=== PATIENT | female | born 1945 | race Caucasian/White ===

== ENCOUNTER → 2022-03-16 14:32 | Outpatient (BNVA) | payer OTHER, SELFPAY | PROVIDERS: Family Provider Nurse Practitioner Family; PCP Nurse Practitioner Family; Referring Provider Student in an Organized Health Care Education/Training Program; Visit Provider Specialist | DX: M25.561 Pain in right knee (principal); M25.562 Pain in left knee; M17.0 Bilateral primary osteoarthritis of knee | CPT/HCPCS: 73560; 73565 ==

== ENCOUNTER → 2022-06-17 10:30 | Outpatient (BNVA) | payer OTHER, SELFPAY | PROVIDERS: Family Provider Nurse Practitioner Family; PCP Student in an Organized Health Care Education/Training Program; Visit Provider Internal Medicine Critical Care Medicine | DX: R06.02 Shortness of breath (principal); J84.10 Pulmonary fibrosis, unspecified; M85.88 Other specified disorders of bone density and structure, other site | CPT/HCPCS: 71046 ==

== ENCOUNTER → 2022-08-19 15:46 | Outpatient (BNVA) | payer MEDICARE, SELFPAY | PROVIDERS: Family Provider Nurse Practitioner Family; PCP Student in an Organized Health Care Education/Training Program; Visit Provider Specialist | DX: M17.0 Bilateral primary osteoarthritis of knee (principal) | CPT/HCPCS: 73560; 73565; 99213; 99214 ==

== ENCOUNTER 2022-11-17 15:17 | Outpatient (CLI) | payer MEDICARE, SELFPAY ==
--- NOTE | 2022-11-17 15:00 | CT_ITS ---
WS: [id number] CT RIGHT knee, noncontrast HISTORY: knee pain TECHNIQUE: Protocol for [facility] total knee replacement has been obtained. This includes axial imaging th rough the RIGHT hip, RIGHT knee and RIGHT ankle. DLP: 963.82 mGy.cm COMPARISON: Knee radiograph 08/19/2022 Minimal narrowing of the RIGHT hip joint. No destructive bone lesion. Severe medial compartment joint space narrowing with bone upon bone RIGHT knee. Osteophytes and subch ondral cysts. Mild lateral compartment and patellofemoral compartment osteoarthritis. Small joint eff usion. Negative ankle. CT/CT knee RT [facility] IMPRESSION: CT imaging provided for [facility] robotic total knee replacement.
== END 2022-11-17 15:18 | disposition home or self-care (01) ==
LOC: RAD 15:17
PROVIDERS: PCP Student in an Organized Health Care Education/Training Program; Visit Provider Specialist
DX: M25.561 Pain in right knee (principal); Z01.818 Encounter for other preprocedural examination
CPT/HCPCS: 73700

== ENCOUNTER → 2022-11-25 15:49 | Outpatient (BNVA) | payer MEDICARE, SELFPAY | PROVIDERS: PCP Student in an Organized Health Care Education/Training Program; Visit Provider Specialist | DX: M17.11 Unilateral primary osteoarthritis, right knee (principal) | CPT/HCPCS: 99214 ==

== ENCOUNTER 2022-12-02 11:55 | Outpatient (CLI) | payer MEDICARE, SELFPAY | END 2022-12-02 11:56 | disposition home or self-care (01) | LOC: RT 12-07 11:57 | PROVIDERS: PCP Student in an Organized Health Care Education/Training Program; Visit Provider Specialist | DX: Z13.6 Encounter for screening for cardiovascular disorders (principal); R00.1 Bradycardia, unspecified | CPT/HCPCS: 93005 ==

== ENCOUNTER 2022-12-08 14:54 | Observation (INO) | payer MEDICARE, SELFPAY ==
[2022-12-02 08:39] VITALS: BMI 34.9
--- NOTE | 2022-12-02 09:13 | ECG_ITS ---
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 [id number]
[2022-12-02 09:39] LABS: Basophils % 0.7 %; Eosinophils # 0.2 10^3/uL (0.0-0.8); Eosinophils % 3.8 %; Hematocrit 39.4 % (37.0-47.0); Hemoglobin 12.7 g/dL (11.5-15.3); Lymphocytes # 2.2 10^3/uL (0.8-4.8); Lymphocytes % 35.7 %; Mean Corpuscular HGB Conc 32.2 g/dL (30.0-36.0); Mean Corpuscular Hemoglobin 32.6 pg (28.0-34.0); Mean Platelet Volume 9.8 fL (7.4-10.4); Monocytes # 0.6 10^3/uL (0.2-0.9); Monocytes % 9.3 %; Neutrophils # 3.03 10^3/uL (1.8-7.7); Neutrophils % 50.2 %; Nucleated Red Blood Cells % 0 %; Platelet Count 232 10^3/cmm (130-400); Red Cell Distribution Width 12.1 % (12.1-15.1)
[2022-12-02 09:54] LABS: Add Urine Microscopic? NO; Charge for UA Resulting for Rev
[2022-12-02 09:57] LABS: Alanine Aminotransferase 16 U/L (0-33); Albumin Level 4.3 g/dL (3.5-5.2); Alkaline Phosphatase 109 U/L (35-105); Anion Gap 12.6 (5-19); Aspartate Amino Transferase 20 U/L (0-32); Blood Urea Nitrogen 13 mg/dL (8-23); Carbon Dioxide 28 mmol/L (22-29); Chloride 104 mmol/L (98-107); Globulin 2.5 g/dL (1.3-4.6); Glucose 96 mg/dL (65-115); Osmolality Calculated 290 mOsm/kg (285-295); Potassium 4.6 mmol/L (3.5-5.1); Sodium 140 mmol/L (136-145); Total Bilirubin 0.2 mg/dL (0.15-1.2); Total Protein 6.8 g/dL (6.6-8.7)
[2022-12-02 10:05] LABS: Bilirubin Urine Neg (Negative); Blood Urine Neg (Negative); Glucose Urine UA Norm (Normal); Ketones Urine Negative (Negative); Leukocyte Esterase Urine Negative (Negative); Nitrate Urine Negative (Negative); Protein Urine Neg (Negative); Urine Appearance Clear (CLEAR); Urine Color Yellow (Yellow); Urobilinogen Urine Norm (Negative); pH Urine 6 (5-7)
--- NOTE | 2022-12-02 10:12 | P.ANESASSM_ITS ---
Pre-Anesthetic Assessment Height/Weight: Height 1.55 m Weight 83.915 kg Preop Diagnosis: Primary osteoarthritis right knee Operation Date: 12/08/22 10:30 Proposed Procedures p Paolo Robot Total Knee Arthroplasty RIGHT 88728/M17.10(Right) - Gifty Tidwell MD Familial anesthetic complications: none Was Beta Arian taken within 24 hours: Yes Was Clonidine taken within 24 hours: N/A Social No alcohol and No tobacco Exam alert, oriented x 3, clear to auscultation bilaterally and regular rate & rhythm (debbi) Airway Submandibular: within normal limits Cervical ROM: within normal limits Mallampati: Class II Dentition: full CV/HEM 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) and Hypertension GI Gastroesophageal Reflux Disease Metabolic Hyperlipidemia and Morbid Obesity [facility] Osteoarthritis/DJD Anesthetic Plan ASA status: 3 Anesthesia: Regional (specify below) (SAB with adductor (check PT/INR DOS)) Medications/Allergies Home Medications Medication Instructions Recorded Confirmed Last Taken Type buspirone 10 mg tablet 15 mg PO BID 02/02/22 12/02/22 12/02/22 History propranolol 40 mg tablet 40 mg PO BID 02/02/22 12/02/22 12/02/22 History solifenacin 5 mg tablet (Vesicare) 5 mg PO DAILY 02/02/22 12/02/22 12/02/22 History warfarin 3 mg tablet 3 mg PO BEDTIME 02/02/22 12/02/22 12/01/22 History celecoxib 200 mg capsule 200 mg PO DAILY 03/16/22 12/02/22 12/02/22 History triamcinolone acetonide 0.025 % 1 applic topical BEDTIME 03/16/22 12/02/22 12/01/22 History lotion vitamin E 670 mg (1,000 unit) 1,000 unit PO DAILY 03/16/22 12/02/22 12/02/22 History capsule cetirizine 10 mg tablet 10 mg PO DAILY 06/17/22 12/02/22 12/02/22 History acetaminophen 500 mg tablet 1,000 mg PO BEDTIME 12/02/22 12/02/22 12/01/22 History acetaminophen 500 mg tablet 1,500 mg PO DAILY 12/02/22 12/02/22 12/02/22 History choline 350 cap PO BID 12/02/22 12/02/2223 History diphenhydramine HCl 25 mg capsule 25 mg PO BEDTIME 12/02/22 12/02/22 12/01/22 History (Benadryl) losartan 100 1 tab PO DAILY 12/02/22 12/02/22 12/02/22 History mg-hydrochlorothiazide 25 mg tablet melatonin 5 mg tablet 5 mg PO BEDTIME 12/02/22 12/02/22 12/01/22 History montelukast 10 mg tablet 10 mg PO BEDTIME 12/02/22 12/02/22 12/01/22 History omeprazole 20 mg capsule,delayed 20 mg PO BEDTIME 12/02/22 12/02/22 12/02/22 Hi story release pramipexole 0.25 mg tablet 0.25 mg PO QPM 12/02/22 12/02/22 12/01/22 History pravastatin 40 mg tablet 40 mg PO BEDTIME 12/02/22 12/02/22 12/01/22 History Allergies Allergy/AdvReac Type Severity Reaction Status Date / Time Iodine and Iodide Containing Allergy ALGY-Difficulty Verified 11/25/22 16:02 Produc Breathing Latex, Natural Rubber Allergy ALGY-Rash Verified 11/25/22 16:02 [facility] Anesthesia Medical History Clotting disorder Hypertension Pulmonary embolism Family History Other CAD (coronary artery disease) Cancer Diabetes Social History Smoking and tobacco status: never smoked Data Anesthesia 12/02/22 09:25 12/02/22 09:25 Short CBC 12/02/22 Range/Units 09:25 WBC 6.0 (4.0-10.0) 10^3/uL Hgb 12.7 (11.5-15.3) g/dL Hct 39.4 (37.0-47.0) % MCV 101.0 H (81-99) fl Plt Count 232 (130-400) 10^3/cmm Neut % (Auto) 50.2 % Neut # (Auto) 3.03 (1.8-7.7) 10^3/uL BMP 01/04/23 09:25 Sodium 140 Potassium 4.6 Chloride 104 Carbon Dioxide 28 BUN 13 Creatinine 0.5 Glucose 96 Calcium 9.0 Liver Function 12/02/22 Range/Units 09:25 Total Bilirubin 0.2 (0.15-1.2) mg/dL AST 20 (0-32) U/L ALT 16 (0-33) U/L Alkaline Phosphatase 109 H (35-105) U/L Albumin 4.3 (3.5-5.2) g/dL Urine 12/02/22 Range/Units 09:50 Urine Color Yellow (Yellow) Urine Appearance Clear (CLEAR) Urine pH 6 (5-7) Ur Specific Arrey 1.010 (1.005-1.030) Urine Protein Neg (Negative) Urine Glucose (UA) Norm (Normal) Urine Ketones Negative (Negative) Urine Nitrate Negative (Negative) Urine Bilirubin Neg (Negative) Ur Leukocyte Esterase Negative (Negative) Cardiac Studies: No Data to Display
[2022-12-08] VITALS (24 sets, daily range): BP systolic 93–191; BP diastolic 59–106; PULSE 52–64; RESP 11–23; TEMP 36.1–36.5; O2SAT 95–100
[2022-12-08] MEDS: acetaminophen 1,000 MG/100 ML PIGGYBACK 400 MG IV ×2 (09:32→19:33)
[2022-12-08] MEDS: sodium chloride 0.9% 1,000 ML 30 ML IV (09:34)
[2022-12-08] MEDS: CELEcoxib 200 mg Capsule 400 MG PO (09:34)
--- NOTE | 2022-12-08 10:06 | P.ANESUD_ITS ---
Pre-Anesthetic Update Pre-Anesthetic Assessment: Date of Surgery/Procedure: 12/08/22 Preop Rafaela gnosis: Primary osteoarthritis right knee Proposed Procedure: Operation Date: 12/08/22 10:20 Proposed Procedures p Paolo Robot Total Knee Arthroplasty RIGHT 62798/M17.10(Right) - Gifty Tidwell MD Any changes to Pre-Anesthetic Assessment?: No Last Intake: Intake Last Liquid Date 12/08/22 Last Liquid Time 06:00 Last Solid Date 12/07/22 Last Solid Time 23:30 Labs Last 48hrs: [place] 12/08/22 09:20 PT Cancelled INR Cancelled Vitals: Pulse Rhythm 12/08/22 09:09 Pulse Strength 3+ Normal 12/08/22 09:09 Oxygen Delivery Me thod 12/08/22 09:09 Exam: Pre-Anes Outpt Exam: alert, oriented x 3, clear to auscultation bilaterally and regular rate & rhythm Cardiac Studies: No Data to Display
--- NOTE | 2022-12-08 10:06 | ANES.PROC ---
Anesthesia Procedures Procedure/Date: 12/08/22 Nerve Block ^: Nerve Block 1: Main Anesthesia: spinal anesthesia block Time Out Performed: Yes Consent: requested by attending/covering physician, from patient, risks and benefits reviewed and patient agrees to proceed Nerve block location: adductor canal (R) Anesthesia monitors applied: pulse oximetry, EKG, BP cuff and oxygen Nerve block position: supine Anesthetic Used: ropivicaine 0.5% (30 ml) and with decadron (4 mg) Ultrasound used to: recognize landmarks and visualize and ID femerol nerve Nerve Stimulator Used?: Yes Interscalene/Femoral BLK: 4 stimuplex 21 g needle used for position and inplane approach, visualize local anesthetic spread and no vascular puncture identified Injection: neg aspiration of heme Patient Tolerated Procedure: well and no complications
[2022-12-08 10:57] LABS: INR 0.98 (0.8-1.2)
--- NOTE | 2022-12-08 11:57 | W.PM.OPSUD ---
Surgery/Procedure H&P Update DATE OF PROCEDURE: December 08, 2022 DATE H&P PERFORMED: 11/25/22 H&P UPDATE INFORMATION: I have reviewed H&P completed within last 30 days, I have examined patient prior to procedure, No changes to prior documentation and H&P is in [facility] EMR on date indicated PREOP DIAGNOSIS: Primary osteoarthritis right knee PLANNED PROCEDURE: Operation Date: 12/08/22 10:20 Proposed Procedures p Paolo Robot Total Knee Arthroplasty RIGHT 47400/M17.10(Right) - Gifty Tidwell MD Related Problem List Diagnoses (1) Primary osteoarthritis of right knee:
[2022-12-08] MEDS: ceFAZolin 2,000 MG in sodium chloride 0.9% (plus) 50 ML 100 MG IV ×2 (12:07→22:51)
[2022-12-08] MEDS: vancomycin 1,000 MG SDV 1000 MG (13:54)
[2022-12-08] MEDS: sodium chloride 0.9% 1,000 ML 100 ML IV (13:55)
[2022-12-08] MEDS: ceFAZolin 1,000 mg SDV 1000 MG XX (13:56)
--- NOTE | 2022-12-08 15:22 | SUR.OPER ---
attempted to contact alexx Chacko with phone number provided. No answer. No message service.
[2022-12-08] MEDS: ceFAZolin 2,000 mg SDV 2000 MG IRRIGATION (16:09)
--- NOTE | 2022-12-08 17:29 | XRR_ITS ---
PROCEDURE INFORMATION: Exam: XR Right Knee Exam date and time: 12/08/2022 5:58 PM Age: 77 years old Clinical indication: Device placement; Joint replacement hardware; Prior surgery; Surgery date: Post-operative (0-2 days); Surgery type: Post right total knee arthroplasty; Additional info: Status post right total knee arthroplasty TECHNIQUE: Imaging protocol: Radiologic exam of the Right knee. Views: 1 or 2 views. COMPARISON: No relevant prior studies available. FINDINGS: Bones/joints: Status post right-sided total knee replacement. Hardware is intact. Alignment is anatomic. No evidence of fracture. Soft tissues: Skin monse are present. Soft tissue gas is seen, consistent with recent surgery. XR/XR knee RT 1-2V [id number] IMPRESSION: Status post right total knee replacement. No evidence of complication.
--- NOTE | 2022-12-08 18:20 | PM.OP ---
Operative Report Date of procedure: December 08, 2022 Pre-op diagnosis: Primary osteoarthritis right knee Post-op diagnosis: Primary osteoarthritis right knee Post-op findings: Severe degenerative changes with varus deformity and large osteophytes with flexion contracture and bone loss Procedure done: Paolo assisted right total knee arthroplasty with conversion to conventional total knee arthroplasty Implants: The Shorty total knee system with a size 3 triathlon posterior stabilized cemented femoral component, a size 4 triathlon total knee universal tibial baseplate, cemented, a triathlon X3 tibial bearing PS insert size 4 X 16 mm and a triathlon X3 cemented asymmetric patella size 29 x 9 mm Specimens removed/disposition: Bone, disposed of Pathology: none sent Surgeon: Gifty Tidwell Subcontract Administrator: [facility] operating room technicians Anesthesia: MAC (With spinal and supplemental adductor tenotomy block, ASA 3) Estimated blood loss (mL): 500 Tourniquet time (min): 95 (At 250 mmHg. Subsequently, the tourniquet was relevated for cementing with a total tourniquet time of 45 minutes at 250 mmHg) IV fluids (mL): 2,000 Urine output (mL): 1,100 Complications: None Findings: Severe degenerative osteoarthritic change with large osteophytes, bone loss, varus deformity, and flexion contracture. Condition: stable Disposition: PACU (Then to floor for postoperative rehabilitation and pain management) Brief History: Crista Dent is an established 77 year old female patient here today for right total knee arthroplasty. Plans were made for a Paolo assisted total knee. Risks and complications were discussed with the patient. Consents were signed. Questions were answered. She wished to proceed and was therefore scheduled. Procedure: The patient was brought to the operating theater, and after undergoing spinal anesthesia, which was also supplemented with adductor canal block and MAC, ASA 3, the right lower extremity was prepped with ChloraPrep and draped in usual fashion following placement of a tourniquet high on the leg. The leg was then draped free. Following prepping and draping, the leg was exsanguinated, and the tourniquet was elevated to 250 mmHg for a total tourniquet time of 95 minutes, but the tourniquet was let down partially through the case, and subsequently was very elevated for cementing. Second tourniquet time totaled 45 minutes at 250 mmHg.? Prior to elevation of the tourniquet, but following exposure of the site of surgery, a surgical pause was performed. At the time of the surgical pause, we confirmed the site and side of surgery. Additionally, we confirmed the appropriate and timely administration of preoperative antibiotics, Ancef 2 g.? transexemic acid was not given secondary to patient's history of pulmonary emboli and blood clots. The availability of equipment was confirmed, and the patient's identity was verbalized as well. Following the surgical pause, an incision was made centering over the patella continuing proximally and distally as necessary to allow access to the knee joint. Dissection continued through skin and soft tissues using a scalpel. Hemostasis was obtained using electrocautery. The skin incision was followed by a median parapatellar arthrotomy. The leg was extended and the patella was able to be displaced laterally.? Appropriate arrays and markers were placed in appropriate position for use of the Paolo.? Preoperative planning had been accomplished and was discussed in detail with the [facility] correspondence representative.? Intraoperative mapping of the femur and tibia was accomplished after the arrays were placed.? Internal markers were also placed.? Once we had accomplished the Paolo mapping, we began the appropriate resections for placement of the prosthesis.? The plan was for a cruciate retaining right total knee arthroplasty. Once appropriate mapping had been accomplished retraction was established using manual retraction by surgical technicians and also the Paolo leg positioner and retractors.? The knee was evaluated.? There was a significant osteoarthritic change.? Osteophytes were removed, and appropriate bone resection was accomplished using the Paolo. Paolo planning initially planned for a size 4 femur, but subsequently, the patient was fitted with a size 3 femur. Initial cuts were made with the Paolo including the distal femoral cut as well as the anterior and posterior chamfer cuts. The Paolo malfunctioned and would not allow the posterior cut to be made, and upon evaluation, there was some impingement and significant prominence of the tibial spine. Therefore, we were able to proceed with a proximal tibial cut. After the proximal tibia cut, the Paolo further malfunctioned and would not continue with the remaining cuts which included the posterior and anterior cuts. Balancing of the knee was quite difficult secondary to the patient's severe varus deformity, and there were large osteophytes, a flexion contracture, and significant imbalance upon evaluation with the Paolo software and evaluation of the CT. We had performed a significant medial release at the beginning of the procedure to allow for placement of the array.? At this time, we aborted use of the Paolo and proceeded with conventional total knee arthroplasty. We used the revision femoral block to allow us to place the block positioning it off of the previous distal cut and the chamfer cuts. The revision block was placed in position and anterior as well as posterior cuts were completed. Following this, decision was made to proceed with posterior stabilized cemented total knee arthroplasty, and the femoral cutting block was placed in position. As the Paolo had initially planned for a size 4, we placed the size 4 cutting block, but it was felt that this was too wide. Therefore, we decreased to a size 3 with preparation being made from the anterior cut. This resulted in further posterior resection and revision of the posterior chamfer cut. Once the notch had been excised to remove the posterior cruciate ligament, trial reduction was accomplished. A trial reduction was accomplished after osteophytes have been removed as well as the medial and lateral menisci.? We had removed the anterior cruciate ligament at the beginning of the case, and the posterior cruciate ligament was removed following decision to proceed to a posterior stabilized cemented prosthesis.? Additionally, multiple loose bodies were removed during the surgical procedure. Trial reduction was accomplished with a size 3 femoral cruciate substituting component. We placed a size 4 tibial component after evaluating the proximal tibia for appropriate size. This was placed through range of motion and we progressively increased size of the tibial insert with the tibial insert at a size 16 mm giving us the excellent extension and varus valgus stability. Alignment was appropriate as well. Alignment was confirmed with the Paolo as this portion of the software continued to be appropriately functioning. Rotation of the tibial tray was marked, and it was pinned in position. We subsequently drilled and broached the tibia for universal tibial baseplate. All trial components were removed, and the wound was irrigated.? Plans were made for insertion of the prosthetic components.? Prior to this, the patella was manually prepared.? After resection of the articular surface with the jigging system, it was measured and measured a 29 mm patella.? We resected approximately 10 mm of patella and patellar height was restored with the patellar component. Once again, the wound was irrigated and dried in preparation for cementing.? The tibia was cemented in appropriate position. The size 4 x 16 mm tibial insert was impacted into position as well. The femoral component was then placed in position and impacted. All excess cement was removed. The knee was extended and the patella was placed in position and held with a patellar clamp. This was held until the cement fully cured with all excess cement being cleared throughout the curing process. Exparel was injected about the components deep and superficially.? The knee was then copiously irrigated with normal saline, but Betadine was not used secondary to the patient's allergy, and the knee was suctioned dry. Attention was then directed to closure. Closure was accomplished with 0 Vicryl in the fascial tissues.? This was followed by Surgiflo and vancomycin powder.? Following this, a 2-0 Monocryl was used in the subcutaneous tissues, and the skin was closed with skin monse.? Care was taken to assure an excellent subcutaneous as well as skin closure.? A sterile dressing was then placed consisting of Dermabond Prineo, OpSite, sterile soft roll including over the foot, and an Shaun wrap. The patient was returned the Recovery Room in a satisfactory condition. X-rays were obtained and reviewed there.? The patient will be discharged to the floor for postoperative rehabilitation and pain management. Related Problem List Diagnoses (1) Primary osteoarthritis of right knee:
[2022-12-08] MEDS: meperidine 50 mg/mL INJ 12.5 MG IVP (18:41)
--- NOTE | 2022-12-08 18:48 | PC.NURSE ---
Demerol given for shivering. Warm blankets. Shivering improved
--- NOTE | 2022-12-08 19:00 | ANE.PACU2 ---
Inpatient post-anesthesia follow up: Airway intact: Yes Vital signs: Temperature 98.1 F Pulse Rate 67 Respiratory Rate 16 Blood Pressure 134/65 Pulse Oximetry 94 Oxygen Delivery Me thod Room Air Oxygen Flow Rate 8 Fraction of Inspir ed Oxygen Hydration adequate: Yes Nausea and vomiting: No Pain level: 1 Mental status: Baseline
[2022-12-08] MEDS: oxyCODONE 5 mg IR Tab/Cap PO ×2 (19:33→23:22)
[2022-12-08] MEDS: BuSPIRONE 10 mg Tablet 15 MG PO (20:16)
[2022-12-08] MEDS: enoxaparin 30 mg/0.3 mL Syringe SUBCUT (20:16)
[2022-12-08] MEDS: calcium carbonate 500 mg Chew Tablet 1000 MG PO (20:17)
[2022-12-08] MEDS: iron polysaccharide complex 150 mg Capsule PO (20:18)
[2022-12-08] MEDS: atorvastatin 40 mg Tablet 20 MG PO (20:19)
[2022-12-08] MEDS: sennosides-docusate Tablet 2 TAB PO (20:19)
[2022-12-08] MEDS: propranolol 40 mg Tablet PO (20:19)
[2022-12-08] MEDS: pramipexole 0.25 mg Tablet PO (20:19)
[2022-12-08] MEDS: montelukast sodium 10 mg Tablet PO (20:20)
[2022-12-08] MEDS: diphenhydrAMINE 25 mg Capsule PO (20:20)
[2022-12-08] MEDS: CELEcoxib 200 mg Capsule PO (20:20)
[2022-12-08] MEDS: chlorhexidine gluconate 0.12% Btl 473 mL 30 ML MUCOUS MEM (20:20)
[2022-12-08] MEDS: pantoprazole DR 40 mg Tablet PO (20:21)
[2022-12-08] MEDS: warfarin 3 mg Tablet PO (20:27)
--- NOTE | 2022-12-08 20:32 | PC.NURSE ---
ADMIT NOTE Pt was received from OR via bed. A&O. c/o starting to have some pain so was given the po Oxyir and IV Tylenol. Thirsty. Given water and enc to go slow at first with liquids. Wants a cheeseburger. Dressing/jess wrap to RLE. Toes/foot warm with good cap refill. Able to wriggle toes and feel touch. Ice packs to knee. IV PIID to left wrist/forearm area. VS check was done and oriented to room. Call light in place. RN was in to do admission assessment. Son here for awhile and just left to go home
[2022-12-09] VITALS (12 sets, daily range): BP systolic 105–167; BP diastolic 61–73; PULSE 54–73; RESP 16–18; TEMP 36.6–37.2; O2SAT 90–96
[2022-12-09] MEDS: ondansetron 2 mg/ML SDV 2 mL 4 MG IVP (00:40)
[2022-12-09] MEDS: acetaminophen 1,000 MG/100 ML PIGGYBACK 400 MG IV ×2 (03:01→11:04)
[2022-12-09] MEDS: oxyCODONE 5 mg IR Tab/Cap PO ×5 (04:06→21:46)
[2022-12-09 05:42] LABS: Glucose Point of Care 174 mg/dL (70-110)
[2022-12-09 05:43] LABS: Basophils % 0.2 %; Hematocrit 33.4 % (37.0-47.0); Hemoglobin 10.7 g/dL (11.5-15.3); Lymphocytes # 1.2 10^3/uL (0.8-4.8); Lymphocytes % 9.1 %; Mean Corpuscular Hemoglobin 33.2 pg (28.0-34.0); Mean Corpuscular Volume 103.7 fl (81-99); Mean Platelet Volume 10.4 fL (7.4-10.4); Monocytes % 7.7 %; Neutrophils # 10.79 10^3/uL (1.8-7.7); Neutrophils % 82.6 %; Nucleated Red Blood Cells % 0 %; Platelet Count 256 10^3/cmm (130-400); Red Blood Count 3.22 10^6/uL (4.1-5.3); White Blood Count 13.1 10^3/uL (4.0-10.0)
[2022-12-09 06:04] LABS: Blood Urea Nitrogen 14 mg/dL (8-23); Calcium 8.2 mg/dL (8.5-10.5); Carbon Dioxide 23 mmol/L (22-29); Chloride 104 mmol/L (98-107); Glucose 103 mg/dL (65-115); Osmolality Calculated 285 mOsm/kg (285-295); Sodium 137 mmol/L (136-145)
[2022-12-09] MEDS: ceFAZolin 2,000 MG in sodium chloride 0.9% (plus) 50 ML 100 MG IV ×2 (06:25→14:32)
[2022-12-09] MEDS: enoxaparin 30 mg/0.3 mL Syringe SUBCUT ×2 (06:25→19:18)
[2022-12-09] MEDS: cholecalciferol (vitamin D3) 1,000 unit Tablet 1000 UNIT PO (08:16)
[2022-12-09] MEDS: calcium carbonate 500 mg Chew Tablet 1000 MG PO ×2 (08:17→17:34)
[2022-12-09] MEDS: cetirizine 10 mg Tablet PO (08:17)
[2022-12-09] MEDS: aspirin 325 mg EC Tablet PO (08:18)
[2022-12-09] MEDS: propranolol 40 mg Tablet PO ×2 (08:18→17:34)
[2022-12-09] MEDS: CELEcoxib 200 mg Capsule PO ×2 (08:18→21:19)
[2022-12-09] MEDS: losartan 50 mg Tablet 100 MG PO (08:18)
[2022-12-09] MEDS: multivitamin therapeutic Tablet 1 TAB PO (08:18)
[2022-12-09] MEDS: iron polysaccharide complex 150 mg Capsule PO ×2 (08:19→17:35)
[2022-12-09] MEDS: BuSPIRONE 10 mg Tablet 15 MG PO ×2 (08:19→17:34)
[2022-12-09] MEDS: mupirocin oint 22 gm 1 APPLIC NASAL ×2 (08:20→17:32)
[2022-12-09] MEDS: sennosides-docusate Tablet 2 TAB PO ×2 (08:20→17:35)
[2022-12-09] MEDS: chlorhexidine gluconate 0.12% Btl 473 mL 30 ML MUCOUS MEM ×4 (08:20→21:22)
--- NOTE | 2022-12-09 10:19 | PC.CHAP ---
Pastoral Care Encounter/Spiritual Assessment Type of Contact [] Declined web marketing intern visit [] Patient/Family/Request visit [] Outpatient visit [] Follow-up visit [] Physician referral [] Code/Alert [x] Routine visit [] Staff referral [] Actively dying [] Patient sleeping [] Family support [] [] Out of room [] Palliative care [] [] Receiving care in room [] Pre-surgical visit [] Trauma [] Long length of stay [] ICU visit [] Other: Relational/Emotional Strength []x Patient feels connected with others/family/visitors/staff [] Distress [] Loneliness/isolation [] Abandonment Spirituality of Patient [x]x Person of Shruti [] Attends Yarsanism of their Shruti []x Believes in Prayer [] Reads Bible or Orthodoxy materials [] There are Spiritual issues to be addressed Quality Assurance Monitor Body Interventions [x] Prayer x] Active listening [x] Non-anxious presence [] Spiritual/emotional support [] Crisis/trauma care [] Spiritual counseling [] Bereavement support [] Provided bereavement packet [] Provided Bible/devotional materials [] Provided toy/stuffed animal, coloring book to patient or family member [] Provided Communion [] Anointing/[place] [] Salvation [x] Completed spiritual assessment [] Other: Impact on Illness or Injury [] Angry [] Fearful [] Anxious [] Often cries [] Exhaustion [] Unable to work [] Unable to attend bahai [] Unable to walk/stand [] Unable to read [] Unable to drive [] Unable to eat/drink [] Unable to sleep [] Unable to be with family [] Patient intubated [] Other: Summary patient has pain Time spent with patient 10 min
--- NOTE | 2022-12-09 13:33 | PM.PN ---
Subjective Subjective: This 77-year-old lady was brought to the surgery department for same-day surgery in the form of Paolo assisted right total knee arthroplasty. This procedure required conversion to a conventional total knee arthroplasty secondary to computer failure midway through the surgical procedure. Satisfactory total knee arthroplasty was accomplished, and the patient was brought to the floor for postoperative rehabilitation and pain management. Today, she had some dizziness with ambulation, and physical therapy felt that she was not completely safe for discharge to home. An additional day of therapy was felt to be warranted prior to discharge home. Medications: Reviewed: Yes Vitals/I&O/Wt Last Vital Signs Temp 98.1 F 12/09/22 08:10 Pulse 67 12/09/22 10:54 Resp 17 12/09/22 12:35 BP 134/65 12/09/22 08:18 Pulse Ox 94 12/09/22 10:54 O2 Del Method 12/09/22 10:54 O2 Flow Rate 8 12/08/22 18:05 12/08/22 12/09/22 12/09/22 22:59 06:59 14:59 Intake Total 2740 / 3890 440 / 4330 580 / 580 Output Total 3500 / 3500 800 / 4300 Balance -760 / 390 -360 / 30 580 / 580 Physical Exam Const: COMMON NORMALS: no acute distress, average body habitus, patient oriented x3 and alert GENERAL APPEARANCE: cooperative and comfortable ORIENTATION/CONSCIOUSNESS: Yes awake HENMT: COMMON NORMALS: normocephalic and atraumatic HEAD & SCALP: normocephalic and atraumatic Eye: GENERAL EYE: appearance normal, both eyes and all related structures Chest: COMMONS NORMALS: normal inspection of the chest Resp: COMMON NORMALS: normal respiratory effort EFFORT & INSPECTION: Yes able to speak in complete sentences and Yes symmetric chest movement Extremity: RIGHT LOWER EXTREMITY: Yes knee joint (Shaun wrap is removed) Right knee: Yes inspection (Minimal swelling or ecchymosis.), Yes ROM (Able to straight leg raise.) and Yes neurovascular exam (Intact without evidence of DVT.) Neuro: COMMON NORMALS: patient oriented x3 SENSORIUM/ORIENTATION: Yes alert Psych: COMMON NORMALS: mental status grossly normal APPEARANCE: Yes grossly normal ATTITUDE: Yes calm and Yes engaged ATTENTION/CONCENTRATION: Yes attention grossly intact Skin: COMMON NORMALS: no rashes or lesions noted GENERAL SKIN EXAM: no rashes or lesions noted Urinary Catheter Management: 2-way Urethral Latex Free: Cath Placed During This Visit: yes, but has since been removed by the nurse Reason for Continuing Indwelling Catheter: Decision to DC Catheter Urinary Catheter Date of Insertion: 12/08/22 Urinary Catheter Time of Insertion: 12:55 Date Urinary Catheter Removed: 12/09/22 Time Urinary Catheter Discontinued: 06:43 Data 12/09/22 05:11 12/09/22 05:11 A&P Assessment and plan (1) Status post total right knee replacement using cement: Patient was brought to the hospital for same-day surgery in the form of total knee arthroplasty. This was accomplished uneventfully aside from conversion to a conventional total knee from a Paolo total knee arthroplasty part way through the surgical procedure. Satisfactory total knee arthroplasty was placed. Patient was admitted afterwards under observation status for rehabilitation and pain management. Today, she was somewhat dizzy when she was ambulating with physical therapy, and it was felt that it was safest to keep her an additional day for further therapy. With this, we should be able to significantly improve her independence in her activities of daily living as well as her confidence. (2) Primary osteoarthritis of right knee: Attestations Medical Necessity Statement*: Further therapies following total knee arthroplasty to improve independence and safety Coding Level of Care Code Acute [employer] Super[employer] for [employer] Diagnoses Status post total right knee replacement using cement Z96.651 Primary osteoarthritis of right knee M17.11
[2022-12-09] MEDS: acetaminophen 500 mg Tablet 1000 MG PO (17:33)
[2022-12-09] MEDS: pramipexole 0.25 mg Tablet PO (17:36)
--- NOTE | 2022-12-09 19:36 | PC.NURSE ---
INCONT Incont large amt urine. Says first since Alfreda removed this am. Changed
[2022-12-09] MEDS: diphenhydrAMINE 25 mg Capsule PO (21:19)
[2022-12-09] MEDS: warfarin 3 mg Tablet PO (21:19)
[2022-12-09] MEDS: pantoprazole DR 40 mg Tablet PO (21:19)
[2022-12-09] MEDS: atorvastatin 40 mg Tablet 20 MG PO (21:20)
[2022-12-09] MEDS: montelukast sodium 10 mg Tablet PO (21:21)
[2022-12-10] VITALS (10 sets, daily range): BP systolic 110–168; BP diastolic 62–73; PULSE 69–79; RESP 15–18; TEMP 36.4–36.9; O2SAT 93–97
[2022-12-10] MEDS: oxyCODONE 5 mg IR Tab/Cap PO ×4 (01:38→15:30)
[2022-12-10] MEDS: acetaminophen 500 mg Tablet 1000 MG PO ×2 (01:38→09:50)
[2022-12-10] MEDS: enoxaparin 30 mg/0.3 mL Syringe SUBCUT (06:31)
[2022-12-10] MEDS: multivitamin therapeutic Tablet 1 TAB PO (08:00)
[2022-12-10] MEDS: cetirizine 10 mg Tablet PO (08:00)
[2022-12-10] MEDS: cholecalciferol (vitamin D3) 1,000 unit Tablet 1000 UNIT PO (08:00)
[2022-12-10] MEDS: aspirin 325 mg EC Tablet PO (08:01)
[2022-12-10] MEDS: BuSPIRONE 10 mg Tablet 15 MG PO (08:01)
[2022-12-10] MEDS: propranolol 40 mg Tablet PO (08:01)
[2022-12-10] MEDS: losartan 50 mg Tablet 100 MG PO (08:01)
[2022-12-10] MEDS: CELEcoxib 200 mg Capsule PO (08:02)
[2022-12-10] MEDS: calcium carbonate 500 mg Chew Tablet 1000 MG PO (08:02)
[2022-12-10] MEDS: chlorhexidine gluconate 0.12% Btl 473 mL 30 ML MUCOUS MEM (08:02)
[2022-12-10] MEDS: iron polysaccharide complex 150 mg Capsule PO (08:02)
[2022-12-10] MEDS: sennosides-docusate Tablet 2 TAB PO (08:02)
[2022-12-10] MEDS: mupirocin oint 22 gm 1 APPLIC NASAL (08:06)
--- NOTE | 2022-12-10 14:49 | P.DS_ITS ---
Discharge Providers Date of Admission: 12/08/22 14:54 Date of Discharge: December 10, 2022 Attending Provider at Admission: Gifty Tidwell MD Attending Provider at Discharge: Gifty Tidwell MD Diagnoses at Discharge Discharge Diagnosis (1) Status post total right knee replacement using cement: Status: Acute Permanent problem details: Date of procedure: December 08, 2022 Diagnosis: Primary osteoarthritis right knee with varus deformity and large osteophytes with flexion contracture and bone loss Procedure done: Paolo assisted right total knee arthroplasty with conversion to conventional total knee arthroplasty Implants: The [employer] total knee system with a size 3 triathlon posterior stabilized cemented femoral component, a size 4 triathlon total knee universal tibial baseplate, cemented, a triathlon X3 tibial bearing PS insert size 4 X 16 mm and a triathlon X3 cemented asymmetric patella size 29 x 9 mm (2) Primary osteoarthritis of right knee: Status: Acute Reason for Visit Reason for Visit: Paolo Robot Total Knee Arthroplasty RIGHT 19296 Brief History: Crista Dent is an established 77 year old female patient here today for right total knee arthroplasty.? Plans were made for a Paolo assisted total knee.? Risks and complications were discussed with the patient.? Consents were signed.? Questions were answered.? She wished to proceed and was therefore scheduled. Hospital Course Hospital Course The patient was admitted for Paolo assisted knee arthroplasty as same-day surgery. The surgery was uneventful, except it had to be converted to a conventional total knee arthroplasty approximately jail through the surgical procedure secondary to computer hardware issues. Patient participated with physical therapy postoperatively. She notes that she had a right foot drop prior to the surgical procedure, and this was obviously present postoperative. She describes her shoes being stopped on the toe secondary to her inability to actively dorsiflex her foot with any strength. She will be fitted with an AFO prior to her discharge. She remained in the hospital 1 additional night secondary to difficulty getting up and ambulating. Today, she is much more independent and felt to be safe to be discharged home. Patient will be discharged home to follow-up with me as scheduled. Risks and complications were discussed with the patient and her son. They are comfortable with her being discharged to home. Physical Exam Const: COMMON NORMALS: no acute distress, average body habitus, patient oriented x3 and alert GENERAL APPEARANCE: cooperative and comfortable ORIENTATION/CONSCIOUSNESS: Yes awake HENMT: COMMON NORMALS: normocephalic and atraumatic HEAD & SCALP: normocephalic and atraumatic Eye: GENERAL EYE: appearance normal, both eyes and all related structures Chest: COMMONS NORMALS: normal inspection of the chest Resp: COMMON NORMALS: normal respiratory effort EFFORT & INSPECTION: Yes able to speak in complete sentences and Yes symmetric chest movement Extremity: RIGHT LOWER EXTREMITY: Yes knee joint (Knee dressing is dry and intact with minimal drainage.) Right knee: Yes inspection (No significant swelling about the knee or calf.), Yes palpation (No evidence of DVT with negative pain to palpation), Yes ROM (Able to straight leg raise.) and Yes neurovascular exam (Foot drop, but the patient notes this has been present previously.) Neuro: COMMON NORMALS: patient oriented x3 SENSORIUM/ORIENTATION: Yes alert Psych: COMMON NORMALS: mental status grossly normal APPEARANCE: Yes grossly normal ATTITUDE: Yes calm and Yes engaged ATTENTION/CONCENTRATION: Yes attention grossly intact Skin: COMMON NORMALS: no rashes or lesions noted GENERAL SKIN EXAM: no rashes or lesions noted Urinary Catheter Management: 2-way Urethral Latex Free: Cath Placed During This Visit: yes, but has since been removed by the nurse Reason for Continuing Indwelling Catheter: Decision to DC Catheter Urinary Catheter Date of Insertion: 12/08/22 Urinary Catheter Time of Insertion: 12:55 Date Urinary Catheter Removed: 12/09/22 Time Urinary Catheter Discontinued: 06:43 Discharge Data Studies Completed and Pending Completed Studies During Hospitalization Category Date Time Status XR knee RT 1-2V 39912 Routine Exams 12/08/22 17:29 Completed Radiology Impressions Knee X-Ray 12/08/22 17:29 IMPRESSION: Status post right total knee replacement. No evidence of complication. Laboratory Results WBC 13.1 10^3/uL (4.0-10.0) H 12/09/22 05:11 RBC 3.22 10^6/uL (4.1-5.3) L 12/09/22 05:11 Hgb 10.7 g/dL (11.5-15.3) L 12/09/22 05:11 Hct 33.4 % (37.0-47.0) L 12/09/22 05:11 MCV 103.7 fl (81-99) H 12/09/22 05:11 MCH 33.2 pg (28.0-34.0) 12/09/22 05:11 MCHC 32.0 g/dL (30.0-36.0) 12/09/22 05:11 RDW 12.0 % (12.1-15.1) L 12/09/22 05:11 Plt Count 256 10^3/cmm (130-400) 12/09/22 05:11 MPV 10.4 fL (7.4-10.4) 12/09/22 05:11 Neut % (Auto) 82.6 % 12/09/22 05:11 Lymph % (Auto) 9.1 % 12/09/22 05:11 Worth % (Auto) 7.7 % 12/09/22 05:11 Eos % (Auto) 0.0 % 12/09/22 05:11 Baso % (Auto) 0.2 % 12/09/22 05:11 Neut # (Auto) 10.79 10^3/uL (1.8-7.7) H 12/09/22 05:11 Lymph # (Auto) 1.2 10^3/uL (0.8-4.8) 12/09/22 05:11 Worth # (Auto) 1.0 10^3/uL (0.2-0.9) H 12/09/22 05:11 Eos # (Auto) 0.0 10^3/uL (0.0-0.8) 12/09/22 05:11 Baso # (Auto) 0.0 10^3/uL (0.0-0.1) 12/09/22 05:11 Nucleated RBC % (auto) 0 % 12/09/22 05:11 Nucleated RBCs # 0.0 /100WBC 12/09/22 05:11 PT 13.30 SECONDS (12.1-14.9) 12/08/22 10:30 INR 0.98 (0.8-1.2) 12/08/22 10:30 Sodium 137 mmol/L (136-145) 12/09/22 05:11 Potassium 4.0 mmol/L (3.5-5.1) 12/09/22 05:11 Chloride 104 mmol/L (98-107) 12/09/22 05:11 Carbon Dioxide 23 mmol/L (22-29) 12/09/22 05:11 Anion Gap 14.0 (5-19) 12/09/22 05:11 BUN 14 mg/dL (8-23) 12/09/22 05:11 Creatinine 0.5 mg/dL (0.5-0.9) 12/09/22 05:11 GFR Calculation Not Reportable 12/09/22 05:11 Glucose 103 mg/dL (65-115) 12/09/22 05:11 POC Glucose 174 mg/dL (70-110) H 12/08/22 20:57 Calculated Osmolality 285 mOsm/kg (285-295) 12/09/22 05:11 Calcium 8.2 mg/dL (8.5-10.5) L 12/09/22 05:11 Total Bilirubin 0.2 mg/dL (0.15-1.2) 12/02/22 09:25 AST 20 U/L (0-32) 12/02/22 09:25 ALT 16 U/L (0-33) 12/02/22 09:25 Alkaline Phosphatase 109 U/L (35-105) H 12/02/22 09:25 Total Protein 6.8 g/dL (6.6-8.7) 12/02/22 09:25 Albumin 4.3 g/dL (3.5-5.2) 12/02/22 09:25 Globulin 2.5 g/dL (1.3-4.6) 12/02/22 09:25 Urine Color Yellow (Yellow) 12/02/22 09:50 Urine Appearance Clear (CLEAR) 12/02/22 09:50 Urine pH 6 (5-7) 12/02/22 09:50 Ur Specific [place] 1.010 (1.005-1.030) 12/02/22 09:50 Urine Protein Neg (Negative) 12/02/22 09:50 Urine Glucose (UA) Norm (Normal) 12/02/22 09:50 Urine Ketones Negative (Negative) 12/02/22 09:50 Urine Blood Neg (Negative) 12/02/22 09:50 Urine Nitrate Negative (Negative) 12/02/22 09:50 Urine Bilirubin Neg (Negative) 12/02/22 09:50 Urine Urobilinogen Norm mg/dL (Negative) 12/02/22 09:50 Ur Leukocyte Esterase Negative (Negative) 12/02/22 09:50 Vitals Last Vital Signs Temp 97.8 F 12/10/22 11:40 Pulse 71 12/10/22 11:40 Resp 18 12/10/22 11:45 BP 110/63 12/10/22 11:40 Pulse Ox 97 12/10/22 11:40 O2 Del Method 12/10/22 11:40 O2 Flow Rate 8 12/08/22 18:05 Discharge Plan Discharge Patient Disposition: Home Health Service Condition: Stable Prescriptions: New oxycodone 5 mg Tablet 5 mg PO Q4H PRN (Reason: Moderate Pain) 7 Days Qty: 30 0RF Continued propranolol 40 mg tablet 40 mg PO BID warfarin 3 mg tablet 3 mg PO BEDTIME buspirone 10 mg tablet 15 mg PO BID solifenacin [Vesicare] 5 mg tablet 5 mg PO DAILY vitamin E 1,000 unit capsule 1,000 unit PO DAILY celecoxib 200 mg capsule 200 mg PO DAILY triamcinolone acetonide 0.025 % lotion 1 applic topical BEDTIME cetirizine 10 mg tablet 10 mg PO DAILY pravastatin 40 mg Tablet 40 mg PO BEDTIME acetaminophen 500 mg Tablet 1,500 mg PO DAILY Rx Instructions: TAKES 15OO MG IN AM acetaminophen 500 mg Tablet 1,000 mg PO BEDTIME losartan-hydrochlorothiazide 100-25 mg Tablet 1 tab PO DAILY Benadryl 25 mg Capsule 25 mg PO BEDTIME pramipexole 0.25 mg Tablet 0.25 mg PO QPM Rx Instructions: administer 2 - 3 hours before bedtime omeprazole 20 mg Capsule,Delayed Release(Dr/Ec) 20 mg PO BEDTIME montelukast 10 mg Tablet 10 mg PO BEDTIME choline Capsule 350 cap PO BID melatonin 5 mg Tablet 5 mg PO BEDTIME Discharge Orders: Discharge Order (Routine); Ordered 12/10/22 Ordered By: Gifty Law Ambulatory Orders: DME: Walker (Order) Location: None Selected Ordered By: Gifty Tidwell Physical Therapy Eval and Treat Outpatient (Order) Timeframe: 2 Days Facility: [facility] [place] - Location: Physical Therapy Ordered By: Gifty Tidwell Referrals: [facility] [Other] Gifty Tidwell MD [Physician] - 12/23/22 9:15 am Discharge Diet: Advance as tolerated and Usual diet Discharge Activity: Increase activity as tolerated, Limit activity as instructed, Use walker/crutches as instructed and As per PT/OT instructions Patient Instructions: Opioid Safety Activity Restrictions/Additional Instructions: Activity per physical therapy with gait training, strengthening, and range of motion. Ice to right knee. You may shower, but do not soak your knee in water. You may leave the dressing in place until you are seen in the office. You may peel it off if it needs to be. Discharge Attestations Time Spent in Discharge Care*: greater than 30 min Specific Discharge Activities: educating patient, educating and/or supporting family/caregiver, documenting/other paperwork and evaluating patient/reviewing data Quality Metrics Clinical Quality Measures [ No reported AMI, CVA or VTE this stay] Coding Level of Care Code Acute [facility] note Diagnoses Status post total right knee replacement using cement Z96.651 Primary osteoarthritis of right knee M17.11
== END 2022-12-10 15:30 | disposition home health service (06) ==
LOC: MEDSURG 14:54
PROVIDERS: Admitting Provider Specialist; Visit Provider Specialist
PROC: 8E0Y0CZ Robotic Assisted Procedure of Lower Extremity, Open Approach (ICD-10-PCS; CPT 27447; principal; 2022-12-08 09:50)
DX: M17.11 Unilateral primary osteoarthritis, right knee (principal); Z86.718 Personal history of other venous thrombosis and embolism; Z86.711 Personal history of pulmonary embolism; E78.5 Hyperlipidemia, unspecified; I10 Essential (primary) hypertension; E66.01 Morbid (severe) obesity due to excess calories; Z68.35 Body mass index [BMI] 35.0-35.9, adult
CPT/HCPCS: 27447; 36415; 36416; 51702; 51798; 73560; 80048; 80053; 81003; 82962; 85025; 85610; 96372; 97110; 97116; 97161; 97165; 97530; 97760; C1776; C9290; G0378; J0131; J0360; J0690; J1100; J1650; J2175; J2405; J2704; J2795; J3010; J3370; J3490; J7030; L1930

== ENCOUNTER → 2022-12-22 11:18 | Outpatient (BNVA) | payer MEDICARE, SELFPAY | PROVIDERS: Visit Provider Nurse Practitioner Family | DX: Z96.651 Presence of right artificial knee joint (principal) | CPT/HCPCS: 73560; 73565; 99024; 99213 ==

== ENCOUNTER → 2023-01-21 13:39 | Outpatient (BNVA) | payer MEDICARE, SELFPAY | PROVIDERS: Visit Provider Nurse Practitioner Family | DX: Z96.651 Presence of right artificial knee joint (principal); M17.12 Unilateral primary osteoarthritis, left knee | CPT/HCPCS: 73560; 73565; 99214 ==

== ENCOUNTER 2023-02-09 11:13 | Outpatient (CLI) | payer MEDICARE, SELFPAY ==
--- NOTE | 2023-02-09 16:30 | CT_ITS ---
WS: [id number] CT LEFT KNEE, NONCONTRAST TECHNIQUE: Noncontrast CT of the LEFT knee to include the LEFT hip and ankle. CLINICAL INFORMATION: M17.12 - Unilateral primary osteoarthritis, left knee DLP: 998.[address] scans at [facility] use at least one of these dose optimization techniques: automated e xposure control; mA and/or kV adjustment per patient size (includes targeted exams where dose is matc hed to clinical indication); or iterative reconstruction. FINDINGS: Prior postoperative changes RIGHT TKA. Degenerative arthritis sacroiliac joints. Mild to moderate deg enerative narrowing both hips. Advanced arthritis LEFT knee with hypertrophic changes along the joint line. Advanced narrowing patellofemoral articulation. Hypertrophic patella. Small suprapatellar effu earl. Psum-os-fhld articulation medial joint compartment with endplate sclerosis. Sigmoid diverticul osis. CT/CT knee LT [facility] IMPRESSION: Images obtained for preoperative purposes.
== END 2023-02-09 11:14 | disposition home or self-care (01) ==
LOC: RAD 11:19
PROVIDERS: Visit Provider Specialist
DX: M17.12 Unilateral primary osteoarthritis, left knee (principal); Z01.818 Encounter for other preprocedural examination; R00.1 Bradycardia, unspecified
CPT/HCPCS: 73700; 93005

== ENCOUNTER 2023-02-16 15:35 | Observation (INO) | payer MEDICARE, SELFPAY ==
[2023-02-09 11:34] VITALS: BMI 33.4
--- NOTE | 2023-02-09 12:04 | ECG_ITS ---
[facility] Test Date: 2023-02-09 Pat Name: Crista Dent Department: Room: Gender: Female [employer] Justice: : 1945 Requested By: Mode Davis Order Number: [id number] Reading MD: EVANGELISTA SMITH Measurements Intervals Kersey Rate: 49 P: 48 DE: 187 QRS: 34 QRSD: 87 T: 48 QT: 448 QTc: 408 Interpretive Statements SINUS BRADYCARDIA MODERATE ST DEPRESSION [0.05+ mV ST DEPRESSION] Compared to ECG 12/02/2022 09:13:24 ST (T wave) deviation now present Electronically Signed On 02-09-2023 17:41:56 CDT by EVANGELISTA SMITH [email or web address]
[2023-02-09 12:13] LABS: Add Urine Microscopic? NO; Charge for UA Resulting for Rev
[2023-02-09 12:25] LABS: Bilirubin Urine Neg (Negative); Blood Urine Neg (Negative); Glucose Urine UA Norm (Normal); Ketones Urine Negative (Negative); Leukocyte Esterase Urine Negative (Negative); Nitrate Urine Negative (Negative); Protein Urine Neg (Negative); Urine Appearance Clear (CLEAR); Urine Color Yellow (Yellow); Urobilinogen Urine Neg (Negative); pH Urine 5 (5-7)
[2023-02-09 12:26] LABS: Basophils % 0.5 %; Eosinophils # 0.3 10^3/uL (0.0-0.8); Eosinophils % 5.1 %; Hematocrit 40.2 % (37.0-47.0); Hemoglobin 12.7 g/dL (11.5-15.3); Lymphocytes % 31.7 %; Mean Corpuscular HGB Conc 31.6 g/dL (30.0-36.0); Mean Corpuscular Hemoglobin 31.8 pg (28.0-34.0); Mean Corpuscular Volume 100.8 fl (81-99); Mean Platelet Volume 9.8 fL (7.4-10.4); Monocytes # 0.6 10^3/uL (0.2-0.9); Monocytes % 8.7 %; Neutrophils # 3.45 10^3/uL (1.8-7.7); Neutrophils % 53.8 %; Nucleated Red Blood Cells % 0 %; Platelet Count 321 10^3/cmm (130-400); Red Blood Count 3.99 10^6/uL (4.1-5.3); Red Cell Distribution Width 12.3 % (12.1-15.1); White Blood Count 6.4 10^3/uL (4.0-10.0)
[2023-02-09 12:59] LABS: Alanine Aminotransferase 16 U/L (0-33); Albumin Level 4.1 g/dL (3.5-5.2); Alkaline Phosphatase 128 U/L (35-105); Anion Gap 12.9 (5-19); Aspartate Amino Transferase 21 U/L (0-32); Blood Urea Nitrogen 15 mg/dL (8-23); Calcium 9.4 mg/dL (8.5-10.5); Carbon Dioxide 27 mmol/L (22-29); Chloride 106 mmol/L (98-107); Globulin 2.9 g/dL (1.3-4.6); Glucose 97 mg/dL (65-115); Osmolality Calculated 295 mOsm/kg (285-295); Potassium 3.9 mmol/L (3.5-5.1); Sodium 142 mmol/L (136-145); Total Bilirubin 0.2 mg/dL (0.15-1.2)
--- NOTE | 2023-02-09 15:35 | P.ANESASSM_ITS ---
Pre-Anesthetic Assessment Height/Weight: Height 1.55 m Weight 80.286 kg Preop Diagnosis: Primary osteoarthritis right knee Operation Date: 02/16/23 11:25 Proposed Procedures p LEFT TOTAL KNEE ARTHROPLASTY WITH SHWETHA 83722, M17.0(Left) - Gifty Tidwell MD Familial anesthetic complications: Delayed awakening Was Beta Arian taken within 24 hours: Yes Was Clonidine taken within 24 hours: N/A Social No alcohol and No tobacco Exam alert, oriented x 3, clear to auscultation bilaterally and regular rate & rhythm Airway Submandibular: within normal limits Cervical ROM: within normal limits Mallampati: Class II Dentition: chipped CV/HEM Deep Vein Thrombosis (PE (coumadin)) and Hypertension GI Gastroesophageal Reflux Disease Metabolic Morbid Obesity Neuropsych Anxiety and Depression Anesthetic Plan ASA status: 3 Anesthesia: Regional (specify below) (SAB with adductor blk) Medications/Allergies Home Medications Medication Instructions Recorded Confirmed Last Taken Type buspirone 10 mg tablet 15 mg PO BID 02/02/22 02/09/23 02/09/23 History propranolol 40 mg tablet 40 mg PO BID 02/02/22 02/09/23 02/09/23 History solifenacin 5 mg tablet (Vesicare) 5 mg PO DAILY 02/02/22 02/09/23 02/09/23 History warfarin 3 mg tablet 3 mg PO BEDTIME 02/02/22 02/09/23 02/08/23 History celecoxib 200 mg capsule 200 mg PO DAILY 03/16/22 02/09/23 02/09/23 History triamcinolone acetonide 0.025 % 1 applic topical BEDTIME 03/16/22 02/09/23 02/08/23 History lotion vitamin E 670 mg (1,000 unit) 1,000 unit PO DAILY 03/16/22 02/09/23 02/08/23 Hi story capsule cetirizine 10 mg tablet 10 mg PO DAILY 06/17/22 02/09/23 02/09/23 History acetaminophen 500 mg tablet 1,000 mg PO BEDTIME 12/02/22 02/09/23 02/08/23 History acetaminophen 500 mg tablet 1,500 mg PO DAILY 12/02/22 02/09/23 02/09/23 History choline 350 cap PO BID 12/02/22 02/09/23 02/09/23 History diphenhydramine HCl 25 mg capsule 25 mg PO BEDTIME 12/02/22 02/09/23 02/08/23 History (Benadryl) losartan 100 1 tab PO DAILY 12/02/22 02/09/23 02/09/23 History mg-hydrochlorothiazide 25 mg tablet melatonin 5 mg tablet 5 mg PO BEDTIME 12/02/22 02/09/23 02/08/23 History montelukast 10 mg tablet 10 mg PO BEDTIME 12/02/22 02/09/23 02/08/23 History omeprazole 20 mg capsule,delayed 20 mg PO BEDTIME 12/02/22 02/09/23 02/08/23 History release pramipexole 0.25 mg tablet 0.25 mg PO QPM 12/02/22 02/09/23 02/08/23 History pravastatin 40 mg tablet 40 mg PO BEDTIME 12/02/22 02/09/23 02/08/23 History tramadol 50 mg tablet 50 mg PO Q6H PRN pain #30 tabs 12/22/22 02/09/23 01/30/23 Rx Allergies Allergy/AdvReac Type Severity Reaction Status Date / Time Iodine and Iodide Containing Allergy ALGY-Difficulty Verified 01/21/23 13:47 Produc Breathing Latex, Natural Rubber Allergy ALGY-Rash Verified 01/21/23 13:47 PFSH Anesthesia Medical History Clotting disorder Hypertension Pulmonary embolism Family History Other CAD (coronary artery disease) Cancer Diabetes Social History Smoking and tobacco status: never smoked Data Anesthesia 02/09/23 11:55 02/09/23 11:55 Short CBC 02/09/23 Range/Units 11:55 WBC 6.4 (4.0-10.0) 10^3/uL Hgb 12.7 (11.5-15.3) g/dL Hct 40.2 (37.0-47.0) % MCV 100.8 H (81-99) fl Plt Count 321 (130-400) 10^3/cmm Neut % (Auto) 53.8 % Neut # (Auto) 3.45 (1.8-7.7) 10^3/uL BMP 02/09/23 11:55 Sodium 142 Potassium 3.9 Chloride 106 Carbon Dioxide 27 BUN 15 Creatinine 0.7 Glucose 97 Calcium 9.4 Liver Function 02/09/23 Range/Units 11:55 Total Bilirubin 0.2 (0.15-1.2) mg/dL AST 21 (0-32) U/L ALT 16 (0-33) U/L Alkaline Phosphatase 128 H (35-105) U/L Albumin 4.1 (3.5-5.2) g/dL Urine 02/09/23 Range/Units 11:48 Urine Color Yellow (Yellow) Urine Appearance Clear (CLEAR) Urine pH 5 (5-7) Ur Specific [place] 1.010 (1.005-1.030) Urine Protein Neg (Negative) Urine Glucose (UA) Norm (Normal) Urine Ketones Negative (Negative) Urine Nitrate Negative (Negative) Urine Bilirubin Neg (Negative) Ur Leukocyte Esterase Negative (Negative) Cardiac Studies: No Data to Display
[2023-02-16] VITALS (20 sets, daily range): BP systolic 105–200; BP diastolic 58–94; PULSE 54–72; RESP 12–20; TEMP 36.3–37.1; O2SAT 90–98; BMI 33.4
--- NOTE | 2023-02-16 09:34 | P.ANESUD_ITS ---
Pre-Anesthetic Update Pre-Anesthetic Assessment: Date of Surgery/Procedure: 02/16/23 Preop Rafaela gnosis: Primary osteoarthritis left knee Proposed Procedure: Operation Date: 02/16/23 11:15 Proposed Procedures p LEFT TOTAL KNEE ARTHROPLASTY WITH SHWETHA 45854, M17.0(Left) - Gifty Tidwell MD Any changes to Pre-Anesthetic Assessment?: No Last Intake: Intake Last Liquid Date 02/16/23 Last Liquid Time 08:00 Last Solid Date 02/15/23 Last Solid Time 23:30 Vitals: Temperature 97.7 F 02/16/23 09:16 Temperature Source Temporal Artery S can 02/16/23 09:16 Pulse Rate 54 L 02/16/23 09:16 Respiratory Rate 18 02/16/23 09:16 Blood Pressure 200/82 02/16/23 09:16 Blood Pressure Margie n 121 02/16/23 09:16 Pulse Oximetry 97 02/16/23 09:16 Oxygen Delivery Me thod 02/16/23 09:21 Exam: Pre-Anes Outpt Exam: alert, oriented x 3, clear to auscultation bilaterally and regular rate & rhythm Cardiac Studies: No Data to Display
[2023-02-16] MEDS: sodium chloride 0.9% 1,000 ML 30 ML IV (09:37)
[2023-02-16] MEDS: CELEcoxib 200 mg Capsule 400 MG PO (09:39)
[2023-02-16] MEDS: gabapentin 300 mg Capsule PO (09:39)
[2023-02-16] MEDS: acetaminophen 1,000 MG/100 ML PIGGYBACK 400 MG IV ×2 (09:45→16:53)
--- NOTE | 2023-02-16 10:06 | ANES.PROC ---
Anesthesia Procedures Procedure/Date: 02/16/23 Nerve Block ^: Nerve Block 1: Main Anesthesia: spinal anesthesia block Time Out Performed: Yes Consent: requested by attending/covering physician, from patient, risks and benefits reviewed and patient agrees to proceed Nerve block location: adductor canal (L) Anesthesia monitors applied: pulse oximetry, EKG, BP cuff and oxygen Nerve block position: supine Anesthetic Used: ropivicaine 0.5% (30 ml) and with decadron (4 mg) Ultrasound used to: recognize landmarks Nerve Stimulator Used?: No Interscalene/Femoral BLK: 4 stimuplex 21 g needle used for position and inplane approach, visualize local anesthetic spread and no vascular puncture identified Injection: neg aspiration of heme Patient Tolerated Procedure: well and no complications Complications: none
--- NOTE | 2023-02-16 10:08 | P.HPUD_ITS ---
Surgery/Procedure H&P Update DATE OF PROCEDURE: February 16, 2023 DATE H&P PERFORMED: 01/21/23 H&P UPDATE INFORMATION: I have reviewed H&P completed within last 30 days, I have examined patient prior to procedure, No changes to prior documentation and H&P is in [facility] on date indicated PREOP DIAGNOSIS: Primary osteoarthritis left knee PLANNED PROCEDURE: Operation Date: 02/16/23 11:15 Proposed Procedures p LEFT TOTAL KNEE ARTHROPLASTY WITH SHWETHA 85344, M17.0(Left) - Gifty Tidwell MD Related Problem List Diagnoses (1) Osteoarthritis of left knee:
[2023-02-16 10:22] LABS: INR 0.98 (0.8-1.2)
[2023-02-16] MEDS: ceFAZolin 2,000 MG in sodium chloride 0.9% (plus) 50 ML 100 MG IV ×2 (11:12→18:49)
[2023-02-16] MEDS: ceFAZolin 1,000 mg SDV 2000 MG IRRIGATION (12:54)
[2023-02-16] MEDS: vancomycin 1,000 MG SDV 1000 MG INTRA-ARTI (12:56)
[2023-02-16] MEDS: tranexamic acid 1,000 mg/10mL SDV 1000 MG IV (13:50)
--- NOTE | 2023-02-16 14:47 | XR_ITS ---
WS: [id number] EXAMINATION: XR knee LT 1-2V 59615 REASON FOR EXAM: Left total knee arthroplasty COMPARISON: None available. ORDER DATE: 02/16/2023 2:47 PM FINDINGS: There is satisfactory alignment of the prostheses at the knee joint. There is satisfactory prosthesis positioning of the total knee replacement components. There is no sign of periprosthetic osseous abn ormality. There are postoperative changes of soft tissue edema and intra-articular and periarticular soft tissue gas along with a surgical staple line at the skin. XR/XR knee LT 1-2V 87236 IMPRESSION: Stable appearance of recent total knee arthroplasty.
--- NOTE | 2023-02-16 14:55 | P.OP_ITS ---
Operative Report Date of procedure: February 16, 2023 Pre-op diagnosis: Severe degenerative osteoarthritis left knee Post-op diagnosis: Severe degenerative osteoarthritis left knee Post-op findings: Severe degenerative osteoarthritis left knee with complete denudement of the bone over the medial femoral condyle Procedure done: Left total knee arthroplasty with Paolo guidance Implants: The Eugene total knee system with a size 3 triathlon beaded cruciate retaining femur right, a triathlon titanium tibial component size 4 beaded, a triathlon X3 tibial bearing CS insert size 4 X 12 mm and a beaded triathlon titanium asymmetric patella size 29 x 9 mm Specimens removed/disposition: Bone, disposed of Pathology: none sent Surgeon: Gifty Tidwell Guitar Player: [facility] operating room technicians Anesthesia: MAC (With spinal, ASA 3) Estimated blood loss (mL): 500 Tourniquet time (min): 0 (Tourniquet not used) IV fluids (mL): 1,800 Urine output (mL): 700 Complications: None Findings: Severe degenerative osteoarthritis with varus deformity, large osteophytes and denudement of cartilage. Condition: stable Disposition: PACU (Then to floor for postoperative rehabilitation and pain management) Brief History: Crista Dent is an established 77 year old female who presents today for left total knee arthroplasty. She previously underwent right total knee arthroplasty on 12/08/22. The patient is doing well, and she wishes to proceed with left total knee arthroplasty today. Risks and complications were discussed with her. Consents were signed and questions were answered. Procedure: The patient was brought to the operating theater, and and underwent spinal anesthesia supplemented with adductor canal block and MAC, ASA 3, the left lower extremity was prepped with Dura-Prep and draped in usual fashion following placement of a tourniquet high on the leg. The leg was then draped free. Plans were that the tourniquet would not be elevated, and prior to, the surgical procedure, a surgical pause was performed. At the time of the surgical pause, we confirmed the site and side of surgery. Additionally, we confirmed the appropriate and timely administration of preoperative antibiotics, Ancef 2 g and Transexemic acid 1 g.? The availability of equipment was confirmed, and the patient's identity was verbalized as well.? An additional transexemic acid 1 g was given at the end of the surgical procedure as well. Following the surgical pause, an incision was made centering over the patella continuing proximally and distally as necessary to allow access to the knee joint. Dissection continued through skin and soft tissues using a scalpel. Hemostasis was obtained using electrocautery. The skin incision was followed by a median parapatellar arthrotomy. The leg was extended and the patella was able to be displaced laterally.? Appropriate arrays and markers were placed in appropriate position for use of the Paolo.? Preoperative planning had been accomplished and was discussed in detail with the [facility] dental sales representative.? Intraoperative mapping of the femur and tibia was accomplished after the arrays were placed.? Internal markers were also placed.? Once we had accomplished the Paolo mapping, we began the appropriate resections for placement of the prosthesis.? The plan was for a cruciate retaining right total knee arthroplasty. Once appropriate mapping had been accomplished retraction was established using manual retraction by surgical technicians and also the Paolo leg positioner and retractors.? The knee was evaluated.? There was a significant osteoarthritic change.? Appropriate bone resection was accomplished using the Paolo.? The femur was sized to a size 3.? Following femoral cuts, attention was directed to the tibia.? Osteophytes were removed prior to this portion of the procedure.? We had performed a medial release section of osteophytes at the beginning of the procedure to allow for placement of the array.? Proximal tibia was evaluated and it was felt that appropriate size for the tibia was a size 4. A trial reduction was accomplished after osteophytes have been removed as well as the medial and lateral menisci.? We had removed the anterior cruciate ligament at the beginning of the case and preserved the posterior cruciate ligament.? Trial reduction was accomplished with a size 4 femoral cruciate retaining component and a size 4 CS tibial bearing insert which was 11 mm in thickness as well as the size 3 femur.? With this, we had excellent stability, full extension, and appropriate alignment.? As the patient had a varus deformity soft tissue releases were accomplished.? Posterior release, however, was not required.? Trial components were removed after the femur had been drilled.? Prior to removal of the tibial tray which had been pinned in position with appropriate rotation as determined by the Paolo plan, we broached the tibia.? Subsequently, the 4 drill holes were made for the prosthetic component.? All trial components were removed, and the wound was irrigated.? Plans were made for insertion of the prosthetic components.? Prior to this, the patella was manually prepared.? After resection of the articular surface with the jogging system, it was measured and measured a 29 mm patella.? We resected approximately 10 mm of patella and patellar height was restored with the patellar component. Once again, the wound was irrigated.? The Tritanium tibia was impacted into position.? The beaded femur was then impacted into position in a cementless fashion. The CS tibial insert was placed prior to placement of the femoral component. The patella was pressed into position with a patellar clamp.? Exparel was injected about the components deep and superficially.? The knee was then copiously irrigated with betadine and saline and suctioned dry. Attention was then directed to closure. Closure was accomplished with 0 Vicryl in the fascial tissues.? This was followed by Surgiflo and vancomycin powder.? Following this, a 2-0 Monocryl was used in the subcutaneous tissues, and the skin was closed with skin monse.? Care was taken to assure an excellent subcutaneous as well as skin closure.? A sterile dressing was then placed consisting of Dermabond Prineo, OpSite, sterile soft roll including over the foot, and an Shaun wrap. The patient was returned the Recovery Room in a satisfactory condition. X-rays were obtained and reviewed there.? The patient will be discharged to the floor for postoperative rehabilitation and pain management. Related Problem List Diagnoses (1) Osteoarthritis of left knee:
[2023-02-16] MEDS: fentaNYL 50 mcg/mL INJ 2mL IVP (15:13)
--- NOTE | 2023-02-16 15:20 | PC.NURSE ---
Required oxygen post pain medication. 2l/nc
--- NOTE | 2023-02-16 16:04 | PC.NURSE ---
BP 190s systolic upon arrival to floor. Systolic BP was in 200s on arrival today. Patient had not taken 2 of her BP meds today. [facility] nurse stated she will follow up on home meds.
[2023-02-16] MEDS: chlorhexidine gluconate 0.12% Btl 473 mL 30 ML MUCOUS MEM ×2 (16:50→21:25)
[2023-02-16] MEDS: oxyCODONE 5 mg IR Tab/Cap PO ×2 (16:51→21:23)
[2023-02-16] MEDS: propranolol 40 mg Tablet PO (16:51)
[2023-02-16] MEDS: BuSPIRONE 10 mg Tablet 15 MG PO (16:51)
[2023-02-16] MEDS: calcium carbonate 500 mg Chew Tablet 1000 MG PO (16:52)
[2023-02-16] MEDS: sennosides-docusate Tablet 2 TAB PO (16:52)
[2023-02-16] MEDS: pramipexole 0.25 mg Tablet PO (16:52)
[2023-02-16] MEDS: iron polysaccharide complex 150 mg Capsule PO (16:53)
[2023-02-16] MEDS: mupirocin oint 22 gm 1 APPLIC NASAL (16:53)
--- NOTE | 2023-02-16 17:00 | ANE.PACU2 ---
Inpatient post-anesthesia follow up: Airway intact: Yes Vital signs: Temperature 98.3 F Pulse Rate 70 Respiratory Rate 18 Blood Pressure 150/78 Pulse Oximetry 94 Oxygen Delivery Me thod Room Air Oxygen Flow Rate 2 Fraction of Inspir ed Oxygen Hydration adequate: Yes Nausea and vomiting: No Pain level: 1 Mental status: Baseline
--- NOTE | 2023-02-16 19:55 | PC.NURSE ---
Gant catheter patent and draining at this time. Patient's left knee dressing dry and intact, non visible drainage. No patient complaints of pain are present at this time. Patient left resting in supine position watching television, call light and bedside table within reach.
[2023-02-16] MEDS: montelukast sodium 10 mg Tablet PO (21:23)
[2023-02-16] MEDS: pantoprazole DR 40 mg Tablet PO (21:23)
[2023-02-16] MEDS: diphenhydrAMINE 25 mg Capsule PO (21:23)
[2023-02-16] MEDS: warfarin 3 mg Tablet PO (21:24)
[2023-02-16] MEDS: atorvastatin 40 mg Tablet 20 MG PO (21:24)
--- NOTE | 2023-02-16 22:57 | P.CONIM_ITS ---
Providers/Reason For Consult Consulting Physician/Specialty*: Orthopedic surgery, Dr. Tidwell Reason for Consult*: Blood pressure 192/88 Attending Physician: Gifty Tidwell MD Primary Care Provider: Richmond Strickland MD History of Present Illness History of Present Illness Pleasant 77-year-old lady with history of large PE back in 2011, on anticoagulation with warfarin, hypertension underwent left knee TKA due to severe DJD, postoperatively blood pressure elevated up to 192/88. Consultation requested with hospitalist service. She states she is currently doing well, she is watching a basketball game and feels that that might be raising her blood pressure as her team is losing. Her oxygen saturations is noted to be alarming at 89%, although probe not picking up well, with adjustment oxygen saturation 91%. She is having some pain proximally to the knee, states that likely it is due to chronic strain of muscles and ligaments around the knee having to deal with severe arthritis. Prior to admission she states that she completed a course of antibiotics for UTI. She held her warfarin since Wednesday before surgery. She follows with her primary provider for INR monitoring. Review of Systems Const: Denies: fever(s), chills, body aches or malaise Eyes: Denies: change in vision, eye discomfort or eye redness ENMT: Denies: throat pain, oral sores or ear or mastoid pain Card: Denies: chest pain, edema, pre-syncope or dyspnea on exertion Resp: Denies: dyspnea, productive cough, change in phlegm color or hemoptysis GI: Denies: abdominal pain, nausea, vomiting, diarrhea, constipation, hematochezia or melena : Denies: flank pain, urinary frequency or hematuria Musc: Reports: extremity pain (Slightly proximal to left knee); Denies: back pain, joint swelling or joint redness Skin/Breast: Denies: rash or new lesions Neuro: Denies: headache(s), numbness in extremities, weakness in extremities, dizziness, confusion or seizure-like activity Endo: Denies: polyuria or polydipsia Medications/Allergies Home Medications Medication Instructions Recorded Confirmed Last Taken Type buspirone 10 mg tablet 15 mg PO BID 02/02/22 02/09/23 02/15/23 History propranolol 40 mg tablet 40 mg PO BID 02/02/22 02/09/23 02/16/23 History solifenacin 5 mg tablet (Vesicare) 5 mg PO DAILY 02/02/22 02/09/23 02/15/23 History warfarin 3 mg tablet 3 mg PO BEDTIME 02/02/22 02/09/23 02/10/23 History celecoxib 200 mg capsule 200 mg PO DAILY 03/16/22 02/09/23 02/15/23 History triamcinolone acetonide 0.025 % 1 applic topical BEDTIME 03/16/22 02/09/23 02/15/23 History lotion vitamin E 670 mg (1,000 unit) 1,000 unit PO DAILY 03/16/22 02/09/23 02/15/23 History capsule cetirizine 10 mg tablet 10 mg PO DAILY 06/17/22 02/09/23 02/14/23 History acetaminophen 500 mg tablet 1,000 mg PO BEDTIME 12/02/22 02/09/23 02/14/23 His tory acetaminophen 500 mg tablet 1,500 mg PO DAILY 12/02/22 02/09/23 02/14/23 History choline 350 cap PO BID 12/02/22 02/09/23 02/15/23 History diphenhydramine HCl 25 mg capsule 25 mg PO BEDTIME 12/02/22 02/09/23 02/15/23 History (Benadryl) losartan 100 1 tab PO DAILY 12/02/22 02/09/23 02/15/23 History mg-hydrochlorothiazide 25 mg tablet melatonin 5 mg tablet 5 mg PO BEDTIME 12/02/22 02/09/23 02/15/23 History montelukast 10 mg tablet 10 mg PO BEDTIME 12/02/22 02/09/23 02/16/23 History omeprazole 20 mg capsule,delayed 20 mg PO BEDTIME 12/02/22 02/09/23 02/15/23 History release pramipexole 0.25 mg tablet 0.25 mg PO QPM 12/02/22 02/09/23 02/15/23 History pravastatin 40 mg tablet 40 mg PO BEDTIME 12/02/22 02/09/23 02/15/23 History tramadol 50 mg tablet 50 mg PO Q6H PRN pain #30 tabs 12/22/22 02/09/23 02/15/23 Rx Allergies Allergy/AdvReac Type Severity Reaction Status Date / Time Iodine and Iodide Containing Allergy ALGY-Difficulty Verified 02/16/23 09:23 Produc Breathing Latex, Natural Rubber Allergy ALGY-Rash Verified 02/16/23 09:23 Current Medications Generic Name Dose Route Start Last Admin Trade Name Freq PRN Reason Stop Dose Admin Atorvastatin Calcium 20 mg 02/16/23 21:00 02/16/23 21:24 Atorvastatin 40 Mg Tablet PO 20 mg BEDTIME BREANNE Administration Buspirone HCl 15 mg 02/16/23 18:00 02/16/23 16:51 Buspirone 10 Mg Tablet PO 15 mg BID BREANNE Administration Calcium Carbonate 1,000 mg 02/16/23 18:00 02/16/23 16:52 Calcium Carbonate 500 Mg Chew Tablet PO 1,000 mg BID BREANNE Administration Chlorhexidine Gluconate 30 ml 02/16/23 17:00 02/16/23 21:25 Chlorhexidine Gluconate 0.12% Btl 473 Ml MUCOUS MEM 30 ml QID BREANNE Administration Diphenhydramine HCl 25 mg 02/16/23 21:00 02/16/23 21:23 Diphenhydramine 25 Mg Capsule PO 25 mg BEDTIME BREANNE Administration Acetaminophen 1,000 mg in 100 mls @ 400 mls/hr 02/16/23 18:00 02/16/23 18:48 Acetaminophen IV 02/17/23 10:14 Infused Q8H BREANNE Infusion Cefazolin Sodium 2,000 mg/ 50 mls @ 100 mls/hr 02/16/23 19:00 02/16/23 19:40 Sodium Chloride IV 02/17/23 11:29 Infused Q8H BREANNE Infusion Protocol Montelukast Sodium 10 mg 02/16/23 21:00 02/16/23 21:23 Montelukast Sodium 10 Mg Tablet PO 10 mg BEDTIME BREANNE Administration Mupirocin 1 applic 02/16/23 18:00 02/16/23 16:53 Mupirocin Oint 22 Gm NASAL 02/21/23 17:59 1 applic BID BREANNE Administration Protocol Non-Formulary Medication 1 applic 02/16/23 21:00 02/16/23 20:58 Triamcinolone Acetonide TOPICAL Not Given BEDTIME BREANNE Oxycodone HCl 5 mg 02/16/23 15:55 02/16/23 21:23 Oxycodone 5 Mg Ir Tab/Cap PO 5 mg Q4H PRN Administration MODERATE PAIN Pantoprazole Sodium 40 mg 02/16/23 21:00 02/16/23 21:[address] 40 Mg Tablet PO 40 mg BEDTIME BREANNE Administration Polysaccharide Iron Complex 150 mg 02/16/23 18:00 02/16/23 16:53 Iron Polysaccharide Complex 150 Mg Capsule PO 150 mg BIDWM BREANNE Administration Pramipexole Dihydrochloride 0.25 mg 02/16/23 18:00 02/16/23 16:52 Pramipexole 0.25 Mg Tablet PO 0.25 mg QPM BREANNE Administration Propranolol HCl 40 mg 02/16/23 18:00 02/16/23 16:51 Propranolol 40 Mg Tablet PO 40 mg BID BREANNE Administration Senna/Docusate Sodium 2 tab 02/16/23 18:00 02/16/23 16:52 Sennosides-Docusate Tablet PO 2 tab BID BREANNE Administration Warfarin Sodium 3 mg 02/16/23 21:00 02/16/23 21:24 Warfarin 3 Mg Tablet PO 3 mg BEDTIME BREANNE Administration PFSH Acute PFSH: Medical History (Updated 02/16/23 @ 23:04 by Josh Harry MD) Clotting disorder Hypertension Pulmonary embolism Surgical History (Updated 02/16/23 @ 23:04 by Josh Harry MD) History of appendectomy History of right knee joint replacement Family History Other CAD (coronary artery disease) Cancer Diabetes Social History Smoking and tobacco status: never smoked Vitals/I&O/Wt Last Vital Signs Temp 98.7 F 02/16/23 20:30 Pulse 72 02/16/23 21:19 Resp 16 02/16/23 21:23 BP 161/87 02/16/23 20:30 Pulse Ox 94 02/16/23 21:19 O2 Del Method 02/16/23 21:19 O2 Flow Rate 2 02/16/23 15:40 02/16/23 02/16/23 02/16/23 06:59 14:59 22:59 Intake Total 3060 / 3060 490 / 3550 Output Total 1200 / 1200 2200 / 3400 Balance 1860 / 1860 -1710 / 150 Weight last 48 hrs Weight 80.286 kg Physical Exam Const: COMMON NORMALS: patient oriented x3 and alert GENERAL APPEARANCE: cooperative ORIENTATION/CONSCIOUSNESS: Yes awake HENMT: COMMON NORMALS: oropharynx normal Neck/C-Spine: COMMON NORMALS: no JVD Resp: COMMON NORMALS: normal respiratory effort and clear to auscultation bilaterally AUSCULTATION: clear to auscultation bilaterally Cardio: COMMON NORMALS: no JVD, regular rhythm, S1 normal heart sound present, S2 normal heart sound present and No murmurs present (Cardio) RHYTHM: regular rhythm HEART SOUNDS: S1 normal heart sound present and S2 normal heart sound present GI: COMMON NORMALS: Normal to inspection, nondistended, normoactive bowel sounds present, Soft to palpation and non-tender PALPATION: Yes Soft to palpation Extremity: COMMON NORMALS: no joint enlargement and no pedal edema OTHER: Left knee postop dressing, cooling pack. Reports slight proximal pain to the knee without noted swelling or erythema. Neuro: COMMON NORMALS: patient oriented x3 and moves all extremities SENSORIUM/ORIENTATION: Yes alert Skin: COMMON NORMALS: no rashes or lesions noted GENERAL SKIN EXAM: no rashes or lesions noted Urinary Catheter Management: Gant Latex Free: Cath Placed During This Visit: yes Reason for Continuing Indwelling Catheter: Perioperative Use in Selected Surgeries Urinary Catheter Date of Insertion: 02/16/23 Urinary Catheter Time of Insertion: 12:00 Data 02/09/23 11:55 02/09/23 11:55 A&P Assessment and plan (1) Status post left knee replacement: Some mild pain slightly proximal to the left knee. Sat 89%, but probe not picking up well, with adjustment 91%. Hx PE, cont VTE prophylaxis w risk of PE, resume Warfarin. Cont post op care, PT, discharge planning. Discussed with orthopedic surgery. Therapeutic documentation reviewed. Reviewed pulmonology documentation from most recent visit. (2) Hypertension: Up to 192/88, better currently 161/87. She feels currently blood pressure is exacerbated by the basketball game she is watching since her team is losing. Cont Losartan, propranolol. Change diet to cardiac. (3) History of pulmonary embolism: Has been resumed on warfarin, target INR 2-3. INR noted this morning 0.98. Follow-up INR requested. Bridging with Lovenox, currently on prophylactic dose. Depending on ability to mobilize postoperatively, in case of delays and low risk of fall could consider therapeutic dose Lovenox bridging. Alternatively could consider discharge with DOAC. Plan Clotting disorder: History noted under PMH, although not CAD and other documentation. Consult Attestations Medical Necessity Statement: Continue postoperative assessment management after left TKA in a lady with hypertension, history of PE. Diagnoses Status post left knee replacement Z96.652 Hypertension I10 History of pulmonary embolism Z86.711
[2023-02-17] VITALS: BP 137/75; PULSE 76; RESP 17; TEMP 36.4; O2SAT 94
[2023-02-17] MEDS: acetaminophen 1,000 MG/100 ML PIGGYBACK 400 MG IV ×2 (01:44→09:53)
[2023-02-17] MEDS: enoxaparin 40 mg/0.4 mL Syringe SUBCUT (01:45)
[2023-02-17 04:00] VITALS: BP 176/70; PULSE 70; RESP 17; TEMP 36.4; O2SAT 95
[2023-02-17] MEDS: ceFAZolin 2,000 MG in sodium chloride 0.9% (plus) 50 ML 100 MG IV ×2 (04:22→10:39)
[2023-02-17] MEDS: TRAMadol 50 mg Tablet PO ×2 (04:22→10:11)
--- NOTE | 2023-02-17 04:37 | PC.NURSE ---
Patient removed own IV stating I thought I was done with my fluids. New IV attempt in progress.
--- NOTE | 2023-02-17 04:48 | PC.NURSE ---
22g IV started on anterior left wrist by LETI Gutierrez. Patent and asymptomatic at this time. Patient was educated to not pull out IV until educated otherwise and patient verbalized understanding.
[2023-02-17 05:14] LABS: Basophils % 0.1 %; Hematocrit 35.6 % (37.0-47.0); Hemoglobin 11.5 g/dL (11.5-15.3); Lymphocytes # 1.4 10^3/uL (0.8-4.8); Mean Corpuscular HGB Conc 32.3 g/dL (30.0-36.0); Mean Corpuscular Hemoglobin 31.3 pg (28.0-34.0); Mean Platelet Volume 9.8 fL (7.4-10.4); Monocytes # 0.4 10^3/uL (0.2-0.9); Monocytes % 3.7 %; Neutrophils # 9.85 10^3/uL (1.8-7.7); Neutrophils % 83.9 %; Nucleated Red Blood Cells % 0 %; Platelet Count 317 10^3/cmm (130-400); Red Blood Count 3.67 10^6/uL (4.1-5.3); Red Cell Distribution Width 12.2 % (12.1-15.1); White Blood Count 11.8 10^3/uL (4.0-10.0)
[2023-02-17 05:25] LABS: INR 1.06 (0.8-1.2)
[2023-02-17 05:30] LABS: Anion Gap 16.3 (5-19); Blood Urea Nitrogen 15 mg/dL (8-23); Calcium 8.9 mg/dL (8.5-10.5); Carbon Dioxide 23 mmol/L (22-29); Chloride 102 mmol/L (98-107); Glucose 125 mg/dL (65-115); Osmolality Calculated 286 mOsm/kg (285-295); Potassium 4.3 mmol/L (3.5-5.1); Sodium 137 mmol/L (136-145)
--- NOTE | 2023-02-17 06:09 | PC.NURSE ---
SHIFT SUMMARY Patient has ambulated to restroom with walker, tolerated activity well. Patient has passed gas since surgery, but no BM yet. Patient has complained of very little pain and discomfort. Dressing on knee is dry and intact. Gant catheter was removed at approximately 0605, catheter tip intact and patient tolerated well.
[2023-02-17 08:00] VITALS: BP 150/78; PULSE 70; RESP 18; TEMP 36.8; O2SAT 94
[2023-02-17] MEDS: mupirocin oint 22 gm 1 APPLIC NASAL (08:21)
[2023-02-17] MEDS: chlorhexidine gluconate 0.12% Btl 473 mL 30 ML MUCOUS MEM ×2 (08:21→12:10)
[2023-02-17 08:22] VITALS: BP 150/78
[2023-02-17] MEDS: multivitamin therapeutic Tablet 1 TAB PO (08:22)
[2023-02-17] MEDS: calcium carbonate 500 mg Chew Tablet 1000 MG PO (08:22)
[2023-02-17] MEDS: losartan 50 mg Tablet 100 MG PO (08:22)
[2023-02-17] MEDS: cholecalciferol (vitamin D3) 1,000 unit Tablet 1000 UNIT PO (08:22)
[2023-02-17] MEDS: CELEcoxib 200 mg Capsule PO (08:22)
[2023-02-17] MEDS: propranolol 40 mg Tablet PO (08:22)
[2023-02-17] MEDS: BuSPIRONE 10 mg Tablet 15 MG PO (08:23)
[2023-02-17] MEDS: sennosides-docusate Tablet 2 TAB PO (08:23)
[2023-02-17] MEDS: iron polysaccharide complex 150 mg Capsule PO (08:23)
--- NOTE | 2023-02-17 09:46 | PC.CHAP ---
Pastoral Care Encounter/Spiritual Assessment Type of Contact [] Declined soda fountain clerk visit [] Patient/Family/Request visit [] Outpatient visit [] Follow-up visit [] Physician referral [] Code/Alert [x] Routine visit [] Staff referral [] Actively dying [] Patient sleeping [] Family support [] [] Out of room [] Palliative care [] [] Receiving care in room [] Pre-surgical visit [] Trauma [] Long length of stay [] ICU visit [] Other: Relational/Emotional Strength [x] Patient feels connected with others/family/visitors/staff [] Distress [] Loneliness/isolation [] Abandonment Spirituality of Patient [x] Person of Shruti [x] Attends Mandaen of their Shruti [x] Believes in Prayer [] Reads Bible or Sabianist materials [] There are Spiritual issues to be addressed Special Procedures Technologist Interventions [] Prayer [x] Active listening [x] Non-anxious presence [x] Spiritual/emotional support [] Crisis/trauma care [] Spiritual counseling [] Bereavement support [] Provided bereavement packet [] Provided Bible/devotional materials [] Provided toy/stuffed animal, coloring book to patient or family member [] Provided Communion [] Anointing/[place] [] Salvation [x] Completed spiritual assessment [] Other: Impact on Illness or Injury [] Angry [] Fearful [] Anxious [] Often cries [] Exhaustion [] Unable to work [] Unable to attend uatsdin [] Unable to walk/stand [] Unable to read [] Unable to drive [] Unable to eat/drink [] Unable to sleep [] Unable to be with family [] Patient intubated [] Other: Summary staff came in so visit cut short Time spent with patient 5m
[2023-02-17 11:43] VITALS: BP 171/72; PULSE 62; RESP 16; TEMP 36.7; O2SAT 98
[2023-02-17] MEDS: amlodipine 10 mg Tablet PO (13:14)
--- NOTE | 2023-02-17 14:13 | PM.DCS ---
Discharge Providers Date of Admission: 02/16/23 15:35 Date of Discharge: February 17, 2023 Attending Provider at Admission: Gifty Tidwell MD Attending Provider at Discharge: Gifty Tidwell MD Consults: Dr. Harry, hospitalist Primary Care Provider: Richmond Strickland MD Diagnoses at Discharge Discharge Diagnosis (1) Status post total left knee replacement not using cement: Status: Acute Permanent problem details: Date of procedure: February 16, 2023 Diagnosis: Severe degenerative osteoarthritis left knee Post-op findings: Severe degenerative osteoarthritis left knee with complete denudement of the bone over the medial femoral condyle Procedure done: Left total knee arthroplasty with Paolo guidance Implants: The Roamz total knee system with a size 3 triathlon beaded cruciate retaining femur right, a triathlon titanium tibial component size 4 beaded, a triathlon X3 tibial bearing CS insert size 4 X 12 mm and a beaded triathlon titanium asymmetric patella size 29 x 9 mm (2) Hypertension: Status: Acute (3) History of pulmonary embolism: Status: Acute Reason for Visit Reason for Visit: M17.0 Brief History: Crista Dent is an established 77 year old female who presented for left total knee arthroplasty.? She previously underwent right total knee arthroplasty on 12/08/22.? The patient is doing well, and she wishes to proceed with left total knee arthroplasty.? Risks and complications were discussed with her.? Consents were signed and questions were answered. Hospital Course Hospital Course Patient was brought to the hospital for same-day surgery in the form of left total knee arthroplasty with Paolo guidance. This was well-tolerated, and she was admitted to the floor overnight for observation. On the first postoperative day, the patient was doing well. Plans were made for discharge to home. She did have an episode of hypertension following the surgical procedure in the evening. Hospitalist consultation was obtained for medication adjustment and treatment of this hypertension. By the first postoperative day in the morning, blood pressure was under good control. She was independent with her therapies. Plans were made for discharge to home with home health. Physical Exam Const: COMMON NORMALS: no acute distress, average body habitus, patient oriented x3 and alert GENERAL APPEARANCE: cooperative and comfortable ORIENTATION/CONSCIOUSNESS: Yes awake HENMT: COMMON NORMALS: normocephalic and atraumatic HEAD & SCALP: normocephalic and atraumatic Eye: GENERAL EYE: appearance normal, both eyes and all related structures Chest: COMMONS NORMALS: normal inspection of the chest Resp: COMMON NORMALS: normal respiratory effort EFFORT & INSPECTION: Yes able to speak in complete sentences and Yes symmetric chest movement Extremity: LEFT LOWER EXTREMITY: Yes knee joint (Dressing dry and intact.) Left knee: Yes inspection (No significant ecchymosis or bruising.), Yes palpation (Minimal tenderness to palpation.), Yes ROM (Not evaluated.) and Yes neurovascular exam (Intact distally with no evidence of DVT.) Neuro: COMMON NORMALS: patient oriented x3 SENSORIUM/ORIENTATION: Yes alert Psych: COMMON NORMALS: mental status grossly normal APPEARANCE: Yes grossly normal ATTITUDE: Yes calm and Yes engaged ATTENTION/CONCENTRATION: Yes attention grossly intact Skin: COMMON NORMALS: no rashes or lesions noted GENERAL SKIN EXAM: no rashes or lesions noted Urinary Catheter Management: Gant Latex Free: Cath Placed During This Visit: yes Reason for Continuing Indwelling Catheter: Other Urinary Catheter Date of Insertion: 02/16/23 Urinary Catheter Time of Insertion: 12:00 Discharge Data Studies Completed and Pending Completed Studies During Hospitalization Category Date Time Status XR knee LT 1-2V 55254 Urgent Exams 02/16/23 14:47 Completed Pending at discharge Category Date Time Status Prothrombin Time INR AM LABS Lab 02/18/23 04:00 Ordered Prothrombin Time INR AM LABS Lab 02/19/23 04:00 Ordered Radiology Impressions Knee X-Ray 02/16/23 14:47 IMPRESSION: Stable appearance of recent total knee arthroplasty. Laboratory Results WBC 11.8 10^3/uL (4.0-10.0) H 02/17/23 04:40 RBC 3.67 10^6/uL (4.1-5.3) L 02/17/23 04:40 Hgb 11.5 g/dL (11.5-15.3) 02/17/23 04:40 Hct 35.6 % (37.0-47.0) L 02/17/23 04:40 MCV 97.0 fl (81-99) 02/17/23 04:40 MCH 31.3 pg (28.0-34.0) 02/17/23 04:40 MCHC 32.3 g/dL (30.0-36.0) 02/17/23 04:40 RDW 12.2 % (12.1-15.1) 02/17/23 04:40 Plt Count 317 10^3/cmm (130-400) 02/17/23 04:40 MPV 9.8 fL (7.4-10.4) 02/17/23 04:40 Neut % (Auto) 83.9 % 02/17/23 04:40 Lymph % (Auto) 12.0 % 02/17/23 04:40 [place] % (Auto) 3.7 % 02/17/23 04:40 Eos % (Auto) 0.0 % 02/17/23 04:40 Baso % (Auto) 0.1 % 02/17/23 04:40 Neut # (Auto) 9.85 10^3/uL (1.8-7.7) H 02/17/23 04:40 Lymph # (Auto) 1.4 10^3/uL (0.8-4.8) 02/17/23 04:40 [place] # (Auto) 0.4 10^3/uL (0.2-0.9) 02/17/23 04:40 Eos # (Auto) 0.0 10^3/uL (0.0-0.8) 02/17/23 04:40 Baso # (Auto) 0.0 10^3/uL (0.0-0.1) 02/17/23 04:40 Nucleated RBC % (auto) 0 % 02/17/23 04:40 Nucleated RBCs # 0.0 /100WBC 02/17/23 04:40 PT 14.20 SECONDS (12.1-14.9) 02/17/23 04:40 INR 1.06 (0.8-1.2) 02/17/23 04:40 Sodium 137 mmol/L (136-145) 02/17/23 04:40 Potassium 4.3 mmol/L (3.5-5.1) 02/17/23 04:40 Chloride 102 mmol/L (98-107) 02/17/23 04:40 Carbon Dioxide 23 mmol/L (22-29) 02/17/23 04:40 Anion Gap 16.3 (5-19) 02/17/23 04:40 BUN 15 mg/dL (8-23) 02/17/23 04:40 Creatinine 0.8 mg/dL (0.5-0.9) 02/17/23 04:40 GFR Calculation Not Reportable 02/17/23 04:40 Glucose 125 mg/dL (65-115) H 02/17/23 04:40 Calculated Osmolality 286 mOsm/kg (285-295) 02/17/23 04:40 Calcium 8.9 mg/dL (8.5-10.5) 02/17/23 04:40 Total Bilirubin 0.2 mg/dL (0.15-1.2) 02/09/23 11:55 AST 21 U/L (0-32) 02/09/23 11:55 ALT 16 U/L (0-33) 02/09/23 11:55 Alkaline Phosphatase 128 U/L (35-105) H 02/09/23 11:55 Total Protein 7.0 g/dL (6.6-8.7) 02/09/23 11:55 Albumin 4.1 g/dL (3.5-5.2) 02/09/23 11:55 Globulin 2.9 g/dL (1.3-4.6) 02/09/23 11:55 Urine Color Yellow (Yellow) 02/09/23 11:48 Urine Appearance Clear (CLEAR) 02/09/23 11:48 Urine pH 5 (5-7) 02/09/23 11:48 Ur Specific [place] 1.010 (1.005-1.030) 02/09/23 11:48 Urine Protein Neg (Negative) 02/09/23 11:48 Urine Glucose (UA) Norm (Normal) 02/09/23 11:48 Urine Ketones Negative (Negative) 02/09/23 11:48 Urine Blood Neg (Negative) 02/09/23 11:48 Urine Nitrate Negative (Negative) 02/09/23 11:48 Urine Bilirubin Neg (Negative) 02/09/23 11:48 Urine Urobilinogen Neg mg/dL (Negative) 02/09/23 11:48 Ur Leukocyte Esterase Negative (Negative) 02/09/23 11:48 Vitals Last Vital Signs Temp 98.1 F 02/17/23 11:43 Pulse 62 02/17/23 11:43 Resp 16 02/17/23 11:43 BP 171/72 02/17/23 11:43 Pulse Ox 98 02/17/23 11:43 O2 Del Method 02/17/23 11:43 O2 Flow Rate 2 02/16/23 15:40 Discharge Plan Discharge Patient Disposition: Home Health Service Condition: Stable Prescriptions: New amlodipine 10 mg Tablet 10 mg PO DAILY 30 Days Qty: 30 1RF tramadol 50 mg tablet 50 mg PO Q8H PRN (Reason: pain) 7 Days Qty: 20 0RF Continued propranolol 40 mg tablet 40 mg PO BID warfarin 3 mg tablet 3 mg PO BEDTIME buspirone 10 mg tablet 15 mg PO BID solifenacin [Vesicare] 5 mg tablet 5 mg PO DAILY vitamin E 1,000 unit capsule 1,000 unit PO DAILY celecoxib 200 mg capsule 200 mg PO DAILY triamcinolone acetonide 0.025 % lotion 1 applic topical BEDTIME cetirizine 10 mg tablet 10 mg PO DAILY tramadol 50 mg tablet 50 mg PO Q6H PRN (Reason: pain) Qty: 30 0RF pravastatin 40 mg Tablet 40 mg PO BEDTIME acetaminophen 500 mg Tablet 1,500 mg PO DAILY Rx Instructions: TAKES 15OO MG IN AM acetaminophen 500 mg Tablet 1,000 mg PO BEDTIME losartan-hydrochlorothiazide 100-25 mg Tablet 1 tab PO DAILY diphenhydramine HCl [Benadryl] 25 mg Capsule 25 mg PO BEDTIME pramipexole 0.25 mg Tablet 0.25 mg PO QPM Rx Instructions: administer 2 - 3 hours before bedtime omeprazole 20 mg Capsule,Delayed Release(Dr/Ec) 20 mg PO BEDTIME montelukast 10 mg Tablet 10 mg PO BEDTIME choline Capsule 350 cap PO BID melatonin 5 mg Tablet 5 mg PO BEDTIME No Action cyclobenzaprine 10 mg tablet 10 mg PO TID PRN (Reason: muscle spasm) 10 Days Qty: 30 0RF Discharge Orders: Discharge Order (Routine); Ordered 02/17/23 Ordered By: Gifty Tidwell Referrals: [facility] [place] [facility] ([facility]) [Outside] Gifty Tidwell MD [Physician] - 03/03/23 8:15 am Discharge Diet: Advance as tolerated and Usual diet Discharge Activity: Increase activity as tolerated, Limit activity as instructed, Use walker/crutches as instructed and As per PT/OT instructions Patient Instructions: Amlodipine (By mouth), Tramadol (By mouth), Knee Replacement (DC), Joint Replacement Stoplight, Opioid Safety Activity Restrictions/Additional Instructions: Ice to left knee. Elevation. Weightbearing as tolerated with range of motion, strengthening, and gait training with physical therapy. Check her blood pressure daily at home and her blood pressure diary and follow-up with a primary care provider within next 2 weeks for further adjustment of antihypertensives. New blood pressure medication namely amlodipine 10 mg has been added to your medication list. Continue taking your previous medication including losartan and propanolol as before. Discharge Attestations Time Spent in Discharge Care*: greater than 30 min Specific Discharge Activities: educating patient, documenting/other paperwork and evaluating patient/reviewing data Quality Metrics Clinical Quality Measures [ No reported AMI, CVA or VTE this stay] Coding Level of Care Code Acute Code for Chg Fwd Diagnoses Status post total left knee replacement not using cement Z96.652 Hypertension I10 History of pulmonary embolism Z86.711
[2023-02-17 16:00] VITALS: BP 174/85; PULSE 62; RESP 17; TEMP 36.4; O2SAT 92
--- NOTE | 2023-02-17 16:28 | P.PN_ITS ---
Subjective Subjective: No acute events overnight. Today morning seen and sitting in chair having her meals. Plan for discharge as per primary team. Patient states her blood pressures have already been stable. She does not check her blood pressure at home. She states her blood pressures have always been checked on t he doctor's office and usually are fine. When asked if she can elaborate on fine blood pressures she stated usually they remain up to 160s systolic. We discussed that goal blood pressure to prevent from cardiovascular disease and strokes the guidelines state that blood pressure should be less than 140/90 mmHg. Patient verbalized understanding and is agreeable to change medications. She states she thinks propranolol is not working well for her. She is agreeable to start new dose of amlodipine while continuing her home dose of medications including propranolol. She will discuss further with the primary care provider for possibly changing propranolol to a different medication. She is agreeable to check blood pressures at home. He states her younger son is an EMT and less only [address] I would we will check her blood pressure daily. Vitals/I&O/Wt Last Vital Signs Temp 97.6 F 02/17/23 16:00 Pulse 62 02/17/23 16:00 Resp 17 02/17/23 16:00 BP 174/85 02/17/23 16:00 Pulse Ox 92 02/17/23 16:00 O2 Del Method 02/17/23 16:00 O2 Flow Rate 2 02/16/23 15:40 02/17/23 02/17/23 02/17/23 06:59 14:59 22:59 Intake Total 150 / 3700 750 / 750 Output Total 500 / 3900 100 / 100 Balance -350 / -200 650 / 650 Weight last 48 hrs Weight 80.286 kg Physical Exam Const: COMMON NORMALS: patient oriented x3 and alert GENERAL APPEARANCE: cooperative ORIENTATION/CONSCIOUSNESS: Yes awake HENMT: COMMON NORMALS: oropharynx normal Neck/C-Spine: COMMON NORMALS: no JVD Resp: COMMON NORMALS: normal respiratory effort and clear to auscultation bilaterally AUSCULTATION: clear to auscultation bilaterally Cardio: COMMON NORMALS: no JVD, regular rhythm, S1 normal heart sound present, S2 normal heart sound present and No murmurs present (Cardio) RHYTHM: regular rhythm HEART SOUNDS: S1 normal heart sound present and S2 normal heart sound present GI: COMMON NORMALS: Normal to inspection, nondistended, normoactive bowel sounds present, Soft to palpation and non-tender PALPATION: Yes Soft to palpation Extremity: COMMON NORMALS: no joint enlargement and no pedal edema OTHER: Left knee postop dressing, cooling pack. Reports slight proximal pain to the knee without noted swelling or erythema. Neuro: COMMON NORMALS: patient oriented x3 and moves all extremities SENSORIUM/ORIENTATION: Yes alert Skin: COMMON NORMALS: no rashes or lesions noted GENERAL SKIN EXAM: no rashes or lesions noted Urinary Catheter Management: Gant Latex Free: Cath Placed During This Visit: yes Reason for Continuing Indwelling Catheter: Other Urinary Catheter Date of Insertion: 02/16/23 Urinary Catheter Time of Insertion: 12:00 Data 02/17/23 04:40 02/17/23 04:40 A&P Assessment and plan (1) Status post left knee replacement: Postoperative day 1. Physical therapy, pain medication, anticoagulation and discharge planning as per primary team. Postoperative blood work appreciated. Hemoglobin and kidney functions have remained stable. (2) Hypertension: Goal blood pressure less than 140/90 mmHg. Blood pressure still elevated. At home states has always remained elevated up to 160s. Continue with home dose of losartan and propranolol. Add amlodipine 10 mg d aily. Patient was advised to check her blood pressures daily at home and maintain a blood pressure diary and follow-up with primary care provider in 2 weeks for further adjustment of antihypertensives. Patient verbalized understanding and is agreeable. (3) History of pulmonary embolism: Has been resumed on warfarin, target INR 2-3. INR noted this morning 0.98. Follow-up INR requested. Bridging with Lovenox, currently on prophylactic dose. Depending on ability to mobilize postoperatively, in case of delays and low risk of fall could consider therapeutic dose Lovenox bridging. Alternatively could consider discharge with DOAC. Plan Clotting disorder: History noted under PMH, although not CAD and other documentation. Attestations Medical Necessity Statement*: As per primary team. Diagnoses Status post left knee replacement Z96.652 Hypertension I10 History of pulmonary embolism Z86.711
== END 2023-02-17 15:30 | disposition home health service (06) ==
LOC: MEDSURG 15:47
PROVIDERS: Anesthesiology; Internal Medicine; Admitting Provider Specialist; PCP Family Medicine; Visit Provider Specialist
PROC: 8E0Y0CZ Robotic Assisted Procedure of Lower Extremity, Open Approach (ICD-10-PCS; CPT 27447; principal; 2023-02-16 10:45)
DX: M17.12 Unilateral primary osteoarthritis, left knee (principal); I10 Essential (primary) hypertension; Z86.711 Personal history of pulmonary embolism; Z79.01 Long term (current) use of anticoagulants
CPT/HCPCS: 27447; 36415; 51702; 73560; 80048; 80053; 81003; 85025; 85610; 96372; 97110; 97116; 97161; 97165; 97535; C1776; C9290; G0378; J0131; J0690; J1100; J1650; J2370; J2405; J2704; J3010; J3370; J3490; J7030

== ENCOUNTER → 2023-03-03 10:53 | Outpatient (BNVA) | payer MEDICARE, SELFPAY | PROVIDERS: PCP Family Medicine; Visit Provider Nurse Practitioner Family | DX: Z96.652 Presence of left artificial knee joint (principal) | CPT/HCPCS: 73560; 73565; 99024 ==

== ENCOUNTER → 2023-03-12 10:43 | Outpatient (BNVA) | payer MEDICARE, SELFPAY | PROVIDERS: PCP Family Medicine; Visit Provider Nurse Practitioner Family | DX: Z96.652 Presence of left artificial knee joint (principal); T81.89XA Other complications of procedures, not elsewhere classified, initial encounter; Y74.8 Miscellaneous general hospital and personal-use devices associated with adverse incidents, not elsewhere classified | CPT/HCPCS: 99024; 99213 ==

== ENCOUNTER → 2023-04-01 11:27 | Outpatient (BNVA) | payer MEDICARE, SELFPAY | PROVIDERS: PCP Family Medicine; Visit Provider Nurse Practitioner Family | DX: Z47.89 Encounter for other orthopedic aftercare (principal) | CPT/HCPCS: 73560; 73565; 99024; 99213 ==

== ENCOUNTER → 2023-07-01 13:22 | Outpatient (BNVA) | payer MEDICARE, SELFPAY | PROVIDERS: PCP Family Medicine; Visit Provider Nurse Practitioner Family | DX: Z96.652 Presence of left artificial knee joint (principal) | CPT/HCPCS: 73560; 73565; 99213 ==

== ENCOUNTER → 2023-09-09 13:24 | Outpatient (BNVA) | payer MEDICARE, SELFPAY | PROVIDERS: PCP Family Medicine; Visit Provider Nurse Practitioner Family | DX: L57.0 Actinic keratosis (principal); L85.3 Xerosis cutis; L81.7 Pigmented purpuric dermatosis; D22.5 Melanocytic nevi of trunk; L82.1 Other seborrheic keratosis; L57.8 Other skin changes due to chronic exposure to nonionizing radiation; I87.2 Venous insufficiency (chronic) (peripheral) | CPT/HCPCS: 17000; 99214 ==

== ENCOUNTER → 2023-12-02 13:14 | Outpatient (BNVA) | payer MEDICARE, SELFPAY | PROVIDERS: PCP Family Medicine; Visit Provider Nurse Practitioner | DX: Z96.653 Presence of artificial knee joint, bilateral (principal); M17.0 Bilateral primary osteoarthritis of knee | CPT/HCPCS: 73560; 73565; 99213 ==

== ENCOUNTER 2024-07-26 06:00 | Outpatient (CLI) | payer MEDICARE, SELFPAY | END 2024-07-26 06:01 | disposition home or self-care (01) | PROVIDERS: PCP Family Medicine; Visit Provider Internal Medicine Cardiovascular Disease | DX: I10 Essential (primary) hypertension (principal); Z86.711 Personal history of pulmonary embolism; Z79.01 Long term (current) use of anticoagulants; I95.1 Orthostatic hypotension; R00.1 Bradycardia, unspecified; D68.9 Coagulation defect, unspecified; R94.31 Abnormal electrocardiogram [ECG] [EKG] | CPT/HCPCS: 99204 ==

== ENCOUNTER → 2024-07-26 15:42 | Outpatient (BNVA) | payer MEDICARE, SELFPAY | PROVIDERS: PCP Family Medicine; Visit Provider Internal Medicine Cardiovascular Disease | DX: R00.1 Bradycardia, unspecified (principal); R94.31 Abnormal electrocardiogram [ECG] [EKG] | CPT/HCPCS: 93005 ==

== ENCOUNTER → 2024-09-11 13:53 | Outpatient (BNVA) | payer MEDICARE, SELFPAY | PROVIDERS: PCP Family Medicine; Visit Provider Nurse Practitioner Family | DX: D48.5 Neoplasm of uncertain behavior of skin (principal); L82.0 Inflamed seborrheic keratosis; D22.5 Melanocytic nevi of trunk; L57.8 Other skin changes due to chronic exposure to nonionizing radiation; I87.2 Venous insufficiency (chronic) (peripheral) | CPT/HCPCS: 11102; 17000; 17110; 99213 ==

== ENCOUNTER 2024-09-25 12:45 | Outpatient (CLI) | payer MEDICARE, SELFPAY ==
--- NOTE | 2024-09-25 12:45 | USCV_ITS ---
Crista Dent Age: 79 Gender: F : 1945 Exam Date: 09/25/2024 13:06 Ordering Phys: Kyle Jacobson MD ([email or web address]) Technologist: CT [place] [facility] [place]: BP: 148 / 92 HR: 56 Rhythm: Sinus Technical Quality: Adequate MEASUREMENTS (Male / Female) Normal Values 2D ECHO LVOT Diameter 2.1 cm LV Ejection Fraction MOD 4C 62.7 % LV Ejection Fraction MOD 2C 69.3 % LV Ejection Fraction 2C AL 69.8 % LA Diameter 2.6 cm RA Systolic Volume 4C AL 43.1 ml RA Systolic Volume 4C MOD 41.7 ml LA Sys Volume AL 49.5 cm cubed LA Sys Volume Index AL 25.5 cm cubed/m squared Aorta at Sinotubular Diameter 2.5 cm IVC Diameter 1.6 cm M-MODE LA Ao Ratio MM 1.4 AV Cusp Separation MM 1.9 cm DOPPLER AV Peak Velocity 156.0 cm/s LVOT Peak Velocity 100.0 cm/s AV Area Cont Eq vti 2.4 cm squared AV Area Cont Eq pk 2.2 cm squared MV Peak Velocity 104.0 cm/s MV Area PHT 3.4 cm squared Mitral E to A Ratio 0.9 TR Peak Velocity 166.0 cm/s TR Peak Gradient 11.0 mmHg TV Peak E Velocity 63.0 cm/s Right Atrial Pressure 3.0 mmHg Pulmonary Artery Systolic Pressu 14.0 mmHg PV Peak Velocity 93.0 cm/s FINDINGS Left Ventricle Normal LV size and ejection fraction of 69%. No gross wall motion abnormalities.mild left ventricular hypertrophy. Grade I/IV diastolic dysfunction (abnormal relaxation filling pattern), normal to mildly elevated filling pressures. Right Ventricle Normal right ventricular size and systolic function. Right Atrium Normal right atrial size. Left Atrium Mildly increased left atrial size. Mitral Valve No gross abnormalities noted . Aortic Valve No gross abnormalities noted Tricuspid Valve No gross abnormalities noted Pulmonic Valve No gross abnormalities noted Pericardium Normal pericardium without effusion. Aorta Normal ascending aorta dimension. IVC Normal inferior vena cava. CONCLUSIONS Normal LV size and ejection fraction of 69%. No gross wall motion abnormalities.mild left ventricular hypertrophy. Grade I/IV diastolic dysfunction (abnormal relaxation filling pattern), normal to mildly elevated filling pressures. No gross valvular abnormalities Mildly increased left atrial size. There is no pericardial effusion. There are no intracardiac masses. No similar previous studies are available for comparison Dr Klye Jacobson MD [facility] (Electronically Signed) Final Date: 01 October 2024 16:43 S
== END 2024-09-25 12:47 | disposition home or self-care (01) ==
PROVIDERS: PCP Family Medicine; Visit Provider Internal Medicine Cardiovascular Disease
DX: I50.30 Unspecified diastolic (congestive) heart failure (principal); R06.09 Other forms of dyspnea
CPT/HCPCS: 93306

== ENCOUNTER → 2024-09-28 08:51 | Outpatient (BNVA) | payer MEDICARE, SELFPAY | PROVIDERS: PCP Family Medicine; Visit Provider Dermatology | DX: D03.59 Melanoma in situ of other part of trunk (principal) | CPT/HCPCS: 11602; 13101 ==

== ENCOUNTER → 2024-11-08 14:43 | Outpatient (BNVA) | payer MEDICARE, SELFPAY | PROVIDERS: PCP Family Medicine; Visit Provider Internal Medicine Cardiovascular Disease | DX: I10 Essential (primary) hypertension (principal); Z86.711 Personal history of pulmonary embolism; I95.1 Orthostatic hypotension; R00.1 Bradycardia, unspecified | CPT/HCPCS: 99214 ==

== ENCOUNTER → 2024-12-20 13:55 | Outpatient (BNVA) | payer MEDICARE, SELFPAY | PROVIDERS: PCP Family Medicine; Visit Provider Nurse Practitioner | DX: M17.0 Bilateral primary osteoarthritis of knee (principal); Z96.653 Presence of artificial knee joint, bilateral; M54.50 Low back pain, unspecified; G89.29 Other chronic pain | CPT/HCPCS: 73560; 73565; 99214 ==

== ENCOUNTER → 2024-12-28 14:29 | Outpatient (BNVA) | payer MEDICARE, SELFPAY | PROVIDERS: PCP Family Medicine; Visit Provider Nurse Practitioner Family | DX: L82.1 Other seborrheic keratosis (principal); L57.8 Other skin changes due to chronic exposure to nonionizing radiation; Z08 Encounter for follow-up examination after completed treatment for malignant neoplasm; Z86.006 Personal history of melanoma in-situ; L91.8 Other hypertrophic disorders of the skin; L53.8 Other specified erythematous conditions; R20.8 Other disturbances of skin sensation; L57.0 Actinic keratosis | CPT/HCPCS: 17000; 17110; 99213 ==

== ENCOUNTER → 2025-01-02 14:00 | Outpatient (BNVA) | payer MEDICARE, SELFPAY | PROVIDERS: PCP Family Medicine; Visit Provider Orthopaedic Surgery | DX: M43.16 Spondylolisthesis, lumbar region (principal); M54.50 Low back pain, unspecified; G89.29 Other chronic pain | CPT/HCPCS: 72110; 99204 ==

== ENCOUNTER → 2025-03-28 14:45 | Outpatient (BNVA) | payer MEDICARE, SELFPAY | PROVIDERS: PCP Family Medicine; Visit Provider Nurse Practitioner Family | DX: L81.4 Other melanin hyperpigmentation (principal); L82.1 Other seborrheic keratosis; L81.7 Pigmented purpuric dermatosis; R30.0 Dysuria; Z08 Encounter for follow-up examination after completed treatment for malignant neoplasm; Z86.006 Personal history of melanoma in-situ; L57.0 Actinic keratosis | CPT/HCPCS: 17000; 99213 ==

== ENCOUNTER → 2025-05-17 10:51 | Outpatient (BNVA) | payer MEDICARE, SELFPAY | PROVIDERS: PCP Family Medicine; Visit Provider Nurse Practitioner Family | DX: I10 Essential (primary) hypertension (principal); I31.39 Other pericardial effusion (noninflammatory); Z86.711 Personal history of pulmonary embolism; Z86.718 Personal history of other venous thrombosis and embolism; Z79.01 Long term (current) use of anticoagulants | CPT/HCPCS: 99214 ==

== ENCOUNTER → 2025-06-29 10:32 | Outpatient (BNVA) | payer MEDICARE, SELFPAY | PROVIDERS: PCP Family Medicine; Visit Provider Nurse Practitioner Family | DX: L81.7 Pigmented purpuric dermatosis (principal); R60.0 Localized edema; L81.4 Other melanin hyperpigmentation; L82.1 Other seborrheic keratosis; D22.5 Melanocytic nevi of trunk; L57.8 Other skin changes due to chronic exposure to nonionizing radiation; Z08 Encounter for follow-up examination after completed treatment for malignant neoplasm; Z86.006 Personal history of melanoma in-situ | CPT/HCPCS: 99213 ==